=== PATIENT | female | born 1950 | race Caucasian/White ===

== ENCOUNTER 2017-04-14 15:41 | Inpatient (IN) ==
[2017-04-14 16:46] LABS: Basophils % 0.2 %; Eosinophils % 0.2 %; Hematocrit 42.3 % (35.3-44.9); Hemoglobin 14.2 g/dL (11.5-15.4); Immature Granulocytes % 0.6 % (0-4); Lymphocytes # 1.3 K/mcL (0.6-4.6); Lymphocytes % 6.9 %; Mean Corpuscular HGB Conc 33.6 g/dL (31.6-35.5); Mean Corpuscular Hemoglobin 29.5 pg (28.0-33.3); Mean Corpuscular Volume 87.9 fL (83.0-100.0); Mean Platelet Volume 9.9 fL (9.4-12.4); Monocytes # 1.2 K/mcL (0.0-1.3); Monocytes % 6.2 %; Neutrophils # 16.2 K/mcL (1.6-8.9); Platelet Count 404 K/mcL (140-400); Red Blood Count 4.81 M/mcL (3.82-4.97); Red Cell Distribution Width 13.4 % (11.5-14.5); Segmented Neutrophils % 85.9 %
[2017-04-14 16:59] LABS: Albumin 3.8 g/dL (3.5-5.0); Albumin/Globulin Ratio 1.1 (1.1-2.2); Bilirubin,Total 0.5 mg/dL (0.2-1.2); Calcium 10.1 mg/dL (8.6-10.8); Globulin 3.5 g/dL (2.4-3.5); Potassium 4.5 mEq/L (3.5-4.5); Total Protein 7.3 g/dL (6.0-8.3)
--- NOTE | 2017-04-14 17:50 | Emergency Department Note ---
Disposition Clinical Impression: Acute kidney injury Disposition: Admitted As Inpatient Referrals: Martinez Zaman DO [Primary Care Provider] - Forms: ED Satisfaction Letter Lower Extremity Injury HPI - General Chief Complaint: ED Extremity Injury, Lower Stated Complaint: Bilateral ankle pain Time Seen by Provider: 04/14/17 15:54 Source: patient Limitations: no limitations Nursing Notes Reviewed: Yes Vital Signs Reviewed: Yes - History of Present Illness HPI Narrative: Patient complains of bilateral foot pain. Patient had trouble with falls over the past year had a recent fall about blood pain. Patient was seen yesterday for right foot pain but she should develop left foot and thigh pain. Patient denies numbness and tingling denies chest pain. Per EMS report patient was found to have a blood sugar of 35 but patient states she was asystematic - Related Data Home Medications Medication Instructions Recorded Confirmed Calcium Carb/D3/Magnesium/Zinc 1 tab PO HS 04/14/17 04/14/17 [Kyle Mag Zinc + D Tablet] Cyclobenzaprine HCl 10 mg PO HS 04/14/17 04/14/17 [Cyclobenzaprine HCl] Gabapentin [Neurontin] 300 mg PO QPM 04/14/17 04/14/17 Ibuprofen [Advil] 200 mg PO BID PRN 04/14/17 04/14/17 Insulin Glargine,Hum.rec.anlog 48 unit SQ HS 04/14/17 04/14/17 [Lantus Solostar] Krill/Om-3/Dha/Epa/Phospho/Ast 1 cap PO DAILY 04/14/17 04/14/17 [Krill Oil 1,000 mg Softgel] Lisinopril [Zestril] 5 mg PO DAILY 04/14/17 04/14/17 Metformin HCl [Metformin HCl ER] 500 mg PO BID 04/14/17 04/14/17 Quetiapine Fumarate [SEROquel] 300 mg PO HS 04/14/17 04/14/17 SitaGLIPtin [Januvia] 100 mg PO DAILY 04/14/17 04/14/17 Tramadol HCl [Ultram] 50 mg PO QID PRN 04/14/17 04/14/17 amLODIPine [Norvasc] 5 mg PO QPM 04/14/17 04/14/17 buPROPion HCl [Bupropion HCl Sr] 200 mg PO DAILY 04/14/17 04/14/17 rOPINIRole [Requip] 0.25 mg PO HS 04/14/17 04/14/17 Allergies Allergy/AdvReac Type Severity Reaction Status Date / Time Penicillins [PCN] Allergy Rash Verified 04/11/17 16:29 All systems ED: reviewed and negative except as stated. 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 - Social History Smoking Status: Never smoker Smokeless Tobacco Status: No Alcohol use: Reports: none Drug use: Reports: none Physical Exam - General Limitations: no limitations General appearance: alert - Head Head exam: atraumatic, normocephalic, normal inspection - Eye Eye exam: Present: normal appearance, PERRL, EOMI - ENT ENT exam: normal exam, normal oropharynx, mucous membranes moist - Neck Neck exam: Present: normal inspection, full ROM, trachea midline - Chest Chest inspection: Present: normal inspection, symmetric chest wall rise - Respiratory Respiratory exam: Present: normal lung sounds bilaterally - Cardiovascular Cardiovascular exam: Present: regular rate, normal rhythm, normal heart sounds - Abdominal Exam Abdominal exam: Present: soft, Non-Tender. Absent: tenderness, distention, guarding, rebound, rigidity - Extremities Exam Extremities exam: Present: tenderness (Bilateral feet) - Back Exam Back exam: Present: normal inspection, full ROM. Absent: tenderness - Neurological Exam Neurological exam: Present: alert, oriented X3 - Psychiatric Psychiatric exam: Present: normal affect, normal mood - Skin Skin exam: Present: warm, dry, intact, normal color Course Vital Signs Temperature 98.0 F 04/14/17 15:42 Pulse Rate 106 04/14/17 15:42 Respiratory Rate 16 04/14/17 15:42 Blood Pressure 102/66 04/14/17 15:42 O2 Sat by Pulse Oximetry 97 04/14/17 15:42 Temperature 98.0 F 04/14/17 15:42 Pulse Rate 103 04/14/17 18:20 Respiratory Rate 16 04/14/17 18:20 Blood Pressure 96/65 04/14/17 18:20 O2 Sat by Pulse Oximetry 93 04/14/17 18:20 Oxygen Delivery Oxygen Delivery Room Air Extremity Injury, Lower - Differential Diagnosis Likely: fracture, foreign body, dislocation - Lab Data Lab results reviewed: Yes I reviewed the patient's lab results. Result diagrams: 04/14/17 16:28 04/14/17 16:28 Lab Results 04/14/17 04/14/17 04/14/17 Range/Units 16:28 16:28 18:38 WBC 18.8 H (4.3-11.1) K/mcL RBC 4.81 (3.82-4.97) M/mcL Hgb 14.2 (11.5-15.4) g/dL Hct 42.3 (35.3-44.9) % MCV 87.9 (83.0-100.0) fL MCH 29.5 (28.0-33.3) pg MCHC 33.6 (31.6-35.5) g/dL RDW 13.4 (11.5-14.5) % Plt Count 404 H (140-400) K/mcL MPV 9.9 (9.4-12.4) fL Immature Gran % 0.6 (0-4) % Seg Neutrophils % 85.9 % Lymphocytes % 6.9 % Monocytes % 6.2 % Eosinophils % 0.2 % Basophils % 0.2 % Neutrophils # 16.2 H (1.6-8.9) K/mcL Lymphocytes # 1.3 (0.6-4.6) K/mcL Monocytes # 1.2 (0.0-1.3) K/mcL Eosinophils # 0.0 (0.0-0.6) K/mcL Basophils # 0.0 (0.0-0.2) K/mcL Sodium 136 (136-145) mEq/L Potassium 4.5 (3.5-4.5) mEq/L Chloride 98 (98-109) mEq/L Carbon Dioxide 25 (19-29) mEq/L BUN 28 H (7-20) mg/dL Creatinine 1.58 H (0.57-1.11) mg/dL Est GFR ( Amer) 40 L (> 60) Est GFR (Non-Af Amer) 33 L (> 60) BUN/Creatinine Ratio 18 (6-26) Glucose 141 H (70-99) mg/dL Calculated Osmolality 290 (280-300) Calcium 10.1 (8.6-10.8) mg/dL Total Bilirubin 0.5 (0.2-1.2) mg/dL AST 34 (5-34) Units/L ALT 19 (0-55) Units/L Alkaline Phosphatase 59 (38-126) Units/L Creatine Kinase 1055 H (29-168) Units/L Serum Total Protein 7.3 (6.0-8.3) g/dL Albumin 3.8 (3.5-5.0) g/dL Globulin 3.5 (2.4-3.5) g/dL Albumin/Globulin Ratio 1.1 (1.1-2.2) Urine Color Yellow (Yellow) Urine Clarity Cloudy A (Clear) Urine pH 5.0 (5.0-8.0) pH Units Ur Specific [place] 1.016 (1.010-1.025) Urine Protein Negative (Neg-Trace) mg/dL Urine Glucose (UA) Normal (Normal) mg/dL Urine Ketones Trace H (Negative) mg/dL Urine Blood Negative (Negative) Urine Nitrite Negative (Negative) Urine Bilirubin Negative (Negative) Urine Urobilinogen Normal (Normal) mg/dL Ur Leukocyte Esterase Negative (Negative) Urine Microscopic RBC 0-3 (0-3) per hpf Urine Microscopic WBC 0-3 (0-3) per hpf Ur Squamous Epith Cells Many H (None-Few) per lpf Urine Bacteria None Seen (None-Few) per hpf Hyaline Casts Few (None-Few) per lpf - Radiology Data Radiology results reviewed: Yes I reviewed the patient's radiology results. Chest X-Ray 04/14/17 16:11 IMPRESSION: No acute process. D/ / Marcos Mcadams MD / Marcos Mcadams MD Interpreting Provider: Marcos Mcadams MD Foot X-Ray 04/14/17 16:50 IMPRESSION: 1. Acute likely comminuted fracture involving the head and neck of the left 4th metatarsal with minimal displacement. 2. Acute nondisplaced, likely intra-articular fracture involving the lateral base of the left 4th proximal phalanx. 3. Suspected minimally displaced fracture involving the neck of the left 3rd metatarsal. 4. Questionable acute avulsion fracture involving the dorsal neck of the left talus. 5. Bony demineralization. D/ / Dexter Park MD / Dexter Park MD Interpreting Provider: Dexter Park MD Critical Care Time Total Critical Care Time: 30 Attestation: Critical care performed: Time is exclusive of separately billable procedures. Time includes: direct patient care, patient reassessment, coordination of patient care, interpretation of data (laboratory data, radiology data, and respiratory data), review of patient's medical records, medical consultation and documentation of patient care. Procedures included in critical care time: Procedures excluded from critical care time:
[2017-04-14 18:48] LABS: Bilirubin,Urine Negative (Negative); Blood,Urine Negative (Negative); Clarity,Urine Cloudy (Clear); Color,Urine Yellow (Yellow); Glucose,Urine (UA) Normal (Normal); Ketones,Urine Trace mg/dL (Negative); Leukocyte Esterase,Urine Negative (Negative); Nitrite,Urine Negative (Negative); Protein,Urine Negative (Neg-Trace); Specific Gravity,Urine 1.016 (1.010-1.025); Urobilinogen,Urine Normal (Normal)
[2017-04-14 18:50] LABS: Bacteria,Urine None Seen per hpf (None-Few); Hyaline Casts,Urine Few per lpf (None-Few); RBC,Urine 0-3 per hpf (0-3); Squamous Epithelial Cell,Urine Many per lpf (None-Few); WBC,Urine 0-3 per hpf (0-3)
[2017-04-14] MEDS ORDERED: Acetaminophen 325 MG TABLET PO PRN (21:55)
[2017-04-14] MEDS ORDERED: Naloxone 0.4 MG/ML INJ IVP PRN (21:55)
[2017-04-14] MEDS ORDERED: 0.9 % Sodium Chloride 1,000 ML IVC SCH (22:00)
[2017-04-14] MEDS ORDERED: 0.9 % Sodium Chloride 1,000 ML IVC ONE (22:00)
[2017-04-14] MEDS ORDERED: traMADol 50 MG TABLET PO PRN (22:10)
--- NOTE | 2017-04-14 22:15 | Internal Med History&Physical ---
<Malena Whiting M - Last Filed: 04/15/17 00:39> Date of Encounter: 04/14/17 Time of Encounter: 22:13 Assessment and Plan (1) Acute kidney injury Current visit: Yes Status: Acute BUN 28/Cr 1.58, creatinine up from baseline of 0.83. Patient mildly tachycardic and hypotensive with HR 90s-100s and BP 900-100/60s. Patient reports she has not had anything to drink or eat all day. AMBER likely due to dehydration. Hold home metformin, lisinopril, NSAIDs. 1L bolus IV fluids 0.9NS at 100mL/hr Recheck chemistry in the morning. (2) Metatarsal bone fracture Current visit: Yes Status: Acute Multiple bilateral metatarsal fractures. Patient reports frequent falls resulting in these injuries. Fall precautions Elevation, intermittent ice. Will consult orthopedic surgery for determination of surgery vs. Fay boots. check vitamin D Consult to PT/OT Qualifiers: Encounter type: initial encounter Metatarsal bone: unspecified metatarsal Fracture type: closed Fracture alignment: nondisplaced Laterality: unspecified laterality Qualified Code(s): S92.309A - Fracture of unspecified metatarsal bone(s), unspecified foot, initial encounter for closed fracture (3) Talar fracture Current visit: Yes Status: Acute bilateral talar fractures. consult to orthopedic surgery. Qualifiers: Encounter type: initial encounter Fracture type: closed Talus location: unspecified portion of talus Fracture alignment: nondisplaced Laterality: unspecified laterality Qualified Code(s): S92.109A - Unspecified fracture of unspecified talus, initial encounter for closed fracture (4) Frequent falls Current visit: Yes Status: Acute Patient reporting multiple, frequent falls at home going on for the past year. 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 She states because her arms are shaking she can't check her blood sugar so it may be due to low blood sugar. Her blood sugar was reportedly low in the squad. Will check A1c and blood sugars. PT/OT consult (5) Type 2 diabetes mellitus Current visit: Yes Status: Acute Patient having episodes of shakiness and falls. Blood sugar in the squad was reportedly low. Diabetic diet. check blood sugars ACHS Hold metformin and januvia Decrease basal dose of insulin from 48u to 24u HS Sliding scale correction dose ACHS hypoglycemic protocol. Qualifiers: Diabetes mellitus complication status: with hypoglycemia Diabetes mellitus complication detail: without coma Diabetes mellitus shelter insulin use: with chemical applicator use Qualified Code(s): E11.649 - Type 2 diabetes mellitus with hypoglycemia without coma; Z79.4 - powertrain engineer (current) use of insulin (6) Dehydration Current visit: Yes Status: Acute patient reporting poor oral intake. She is mildly tachycardic with HR 90s-100s and mildy hypotensive with BP 90s-100s systolic. BUN and Cr also elevated. 1L bolus plus IV fluids at 100mL/hr Monitor VS and recheck chemistry in the morning. (7) DVT prophylaxis Current visit: Yes Status: Acute sequential compression devices heparin 5000u SQ TID Internal Medicine - H&P: HPI Chief complaint: foot pain Admitted From: Emergency Dept Plans for Post Hospital Care: Home History of present illness: Ms. Mora is a 67 year old female with hypertension, diabetes, history of TIA , presents to the emergency department today with complaints of bilateral foot pain, and multiple falls. Patient reports that she has been falling frequently , fell on Friday and knocked over a metal table which fell on her right foot. She presented to urgent care at that time and was sent home. She reports she fell yesterday and today both her right foot and her left foot hurting, with her right foot having swelling and ecchymosis. Patient reports when she falls she her arms are shaking and she is unable to hold onto anything. She does not notice any leg weakness, lightheadedness. Her description of the events is vague, and not clear exactly how she is falling. She does report that since her arms or shaky she is unable to check her blood sugars and perhaps she has low blood sugar during the episodes where she falls. Her blood sugar was low in the squad according to the ER report. Evaluation in the emergency department included x-rays of her bilateral feet. X-ray of the left foot revealed acute fracture involving head and neck of left fourth metatarsal, acute fracture involving the lateral base of the left fourth phalanx, suspected fracture in the neck of the third metatarsal, questionable acute avulsion fracture of the left talus. X-ray of the right foot showed acute nondisplaced fractures of the third, fourth and possible second metatarsal necks, acute nondisplaced fracture of the lateral base of the fifth proximal phalanx, questionable fracture at the talar head. Lab results revealed elevated white blood cell count of 18.8, likely reactive. Elevated BUN and creatinine of 28 and 1.58, respectively, creatinine is up from baseline of 0.83. Elevated CK of 1055. Lactic acid was within normal limits. Patient was mildly tachycardic with heart rate in the 90s to low 100s, and blood pressure was running low 90s to 100s over 60s. Patient reports she has not been drinking and has not eaten anything all day. On exam, patient alert and oriented, in no acute distress, heart with regular rate and rhythm, lungs clear bilaterally to auscultation. Right foot with swelling and ecchymosis. +2 pulses and good capillary refill. Left foot with +2 pulses and good capillary refill. Past Med Surg Social Fam HX - Past Medical History Medical history: diabetes, GERD, hypertension, TIA Psychiatric history: anxiety - Past Surgical History Surgical History: breast surgery, cholecystectomy, orthopedic, other - Social History Smoking Status: Never smoker Smokeless Tobacco Status: No Alcohol use: none Drug use: none - Family History Mother Living Status: Age at : 42 Cause of : cancer Hx Family Cancer: Yes Father Living Status: Age at : 60 Cause of : Cancer Hx Family Cancer: Yes Internal Medicine - H&P: Meds Calcium Carb/D3/Magnesium/Zinc [Kyle Mag Zinc + D Tablet] 1 tab PO HS 04/14/17 [ History] Cyclobenzaprine HCl [Cyclobenzaprine HCl] 10 mg PO HS 04/14/17 [History] Gabapentin [Neurontin] 300 mg PO QPM 04/14/17 [History] Ibuprofen [Advil] 200 mg PO BID PRN 04/14/17 [History] Insulin Glargine,Hum.rec.anlog [Lantus Solostar] 48 unit SQ HS 04/14/17 [History ] Krill/Om-3/Dha/Epa/Phospho/Ast [Krill Oil 1,000 mg Softgel] 1 cap PO DAILY 04/14 [History] Lisinopril [Zestril] 5 mg PO DAILY 04/14/17 [History] Metformin HCl [Metformin HCl ER] 500 mg PO BID 04/14/17 [History] Quetiapine Fumarate [SEROquel] 300 mg PO HS 04/14/17 [History] SitaGLIPtin [Januvia] 100 mg PO DAILY 04/14/17 [History] Tramadol HCl [Ultram] 50 mg PO QID PRN 04/14/17 [History] amLODIPine [Norvasc] 5 mg PO QPM 04/14/17 [History] buPROPion HCl [Bupropion HCl Sr] 200 mg PO DAILY 04/14/17 [History] rOPINIRole [Requip] 0.25 mg PO HS 04/14/17 [History] Allergies Penicillins [PCN] Allergy (Verified 04/11/17 16:29) Rash All Systems PM: A 10-system review of systems was performed and is negative for pertinent findings except as documented above in the HPI. - Constitutional Constitutional: no chills, no fever(s), no night sweats - EENT Eyes: no change in vision, no discharge, no pain, no photophobia Ears: no ear discharge, no ear pain, no tinnitus Nose, mouth and throat: no dysphagia, no nasal discharge, no neck pain, no sore throat - Cardiovascular Cardiovascular ROS IM: no chest pain, no diaphoresis, no dyspnea, no lightheadedness, no palpitations, no syncope - Respiratory Respiratory: no cough, no dyspnea, no wheezing, no excessive phlegm production - Gastrointestinal Gastrointestinal: no abdominal pain, no diarrhea, no hematemesis, no hematochezia, no melena, no nausea, no vomiting - Genitourinary Genitourinary: no change in urinary stream, no dysuria, no flank pain, no hematuria - Musculoskeletal Musculoskeletal ROS IM: no numbness, no tingling Additional comments: bilateral foot pain - Integumentary Integumentary IM: no rash, no unusual bruising - Neurological Neurological ROS: frequent falls, tremor(s), no confusion, no convulsions, no focal weakness, no numbness, no tingling - Hematologic/Lymphatic Hematologic/Lymphatic: no easy bruising - Constitutional Vitals: Temp Pulse Resp BP Pulse Ox 98.0 F 101 16 103/70 97 04/14/17 15:42 04/14/17 21:00 04/14/17 21:53 04/14/17 21:53 04/14/17 21:00 General appearance: Present: A&O X 3, pleasant, no acute distress - Head Head exam: Present: atraumatic, normocephalic - Eye Eye exam: Present: PERRL, conjuntiva pink, sclera anicteric Pupils: Present: PERRL - Neck Neck exam general surgery: Present: supple, trachea midline. Absent: lymphadenopathy - Respiratory Respiratory exam: Present: CTAB. Absent: accessory muscle use, rales, rhonchi, wheezes - Cardiovascular Cardiovascular exam: Present: RRR, +S1, +S2. Absent: diastolic murmur, gallop, rubs, systolic murmur - GI/Abdominal GI/Abdominal exam: Present: normal bowel sounds, soft, no peritoneal signs. Absent: distended, tenderness - Extremities Exam Extremities exam: Present: joint swelling (right), normal capillary refill, pedal edema (right), tenderness, warm, radial pulses palpable and symetrical. Absent: calf tenderness, cyanotic - Neurological Exam Neurological exam: Present: CN II-XII intact, oriented X3, no focal deficits. Absent: pronater drift, facial droop, speech deficit - Skin Skin exam: Present: dry, intact Internal Med - H&P Results - Labs CBC & Chem 7: 04/14/17 16:28 04/14/17 16:28 Labs: All Lab Results (24 Hours) 04/14/17 04/14/17 04/14/17 Range/Units 16:28 16:28 18:38 WBC 18.8 H (4.3-11.1) K/mcL RBC 4.81 (3.82-4.97) M/mcL Hgb 14.2 (11.5-15.4) g/dL Hct 42.3 (35.3-44.9) % MCV 87.9 (83.0-100.0) fL MCH 29.5 (28.0-33.3) pg MCHC 33.6 (31.6-35.5) g/dL RDW 13.4 (11.5-14.5) % Plt Count 404 H (140-400) K/mcL MPV 9.9 (9.4-12.4) fL Immature Gran % 0.6 (0-4) % Seg Neutrophils % 85.9 % Lymphocytes % 6.9 % Monocytes % 6.2 % Eosinophils % 0.2 % Basophils % 0.2 % Neutrophils # 16.2 H (1.6-8.9) K/mcL Lymphocytes # 1.3 (0.6-4.6) K/mcL Monocytes # 1.2 (0.0-1.3) K/mcL Eosinophils # 0.0 (0.0-0.6) K/mcL Basophils # 0.0 (0.0-0.2) K/mcL Sodium 136 (136-145) mEq/L Potassium 4.5 (3.5-4.5) mEq/L Chloride 98 (98-109) mEq/L Carbon Dioxide 25 (19-29) mEq/L BUN 28 H (7-20) mg/dL Creatinine 1.58 H (0.57-1.11) mg/dL Est GFR ( Amer) 40 L (> 60) Est GFR (Non-Af Amer) 33 L (> 60) BUN/Creatinine Ratio 18 (6-26) Glucose 141 H (70-99) mg/dL Calculated Osmolality 290 (280-300) Lactic Acid (0.5-2.2) mmol/L Calcium 10.1 (8.6-10.8) mg/dL Total Bilirubin 0.5 (0.2-1.2) mg/dL AST 34 (5-34) Units/L ALT 19 (0-55) Units/L Alkaline Phosphatase 59 (38-126) Units/L Creatine Kinase 1055 H (29-168) Units/L Serum Total Protein 7.3 (6.0-8.3) g/dL Albumin 3.8 (3.5-5.0) g/dL Globulin 3.5 (2.4-3.5) g/dL Albumin/Globulin Ratio 1.1 (1.1-2.2) Urine Color Yellow (Yellow) Urine Clarity Cloudy A (Clear) Urine pH 5.0 (5.0-8.0) pH Units Ur Specific [place] 1.016 (1.010-1.025) Urine Protein Negative (Neg-Trace) mg/dL Urine Glucose (UA) Normal (Normal) mg/dL Urine Ketones Trace H (Negative) mg/dL Urine Blood Negative (Negative) Urine Nitrite Negative (Negative) Urine Bilirubin Negative (Negative) Urine Urobilinogen Normal (Normal) mg/dL Ur Leukocyte Esterase Negative (Negative) Urine Microscopic RBC 0-3 (0-3) per hpf Urine Microscopic WBC 0-3 (0-3) per hpf Ur Squamous Epith Cells Many H (None-Few) per lpf Urine Bacteria None Seen (None-Few) per hpf Hyaline Casts Few (None-Few) per lpf 04/14/17 Range/Units 21:39 WBC (4.3-11.1) K/mcL RBC (3.82-4.97) M/mcL Hgb (11.5-15.4) g/dL Hct (35.3-44.9) % MCV (83.0-100.0) fL MCH (28.0-33.3) pg MCHC (31.6-35.5) g/dL RDW (11.5-14.5) % Plt Count (140-400) K/mcL MPV (9.4-12.4) fL Immature Gran % (0-4) % Seg Neutrophils % % Lymphocytes % % Monocytes % % Eosinophils % % Basophils % % Neutrophils # (1.6-8.9) K/mcL Lymphocytes # (0.6-4.6) K/mcL Monocytes # (0.0-1.3) K/mcL Eosinophils # (0.0-0.6) K/mcL Basophils # (0.0-0.2) K/mcL Sodium (136-145) mEq/L Potassium (3.5-4.5) mEq/L Chloride (98-109) mEq/L Carbon Dioxide (19-29) mEq/L BUN (7-20) mg/dL Creatinine (0.57-1.11) mg/dL Est GFR ( Amer) (> 60) Est GFR (Non-Af Amer) (> 60) BUN/Creatinine Ratio (6-26) Glucose (70-99) mg/dL Calculated Osmolality (280-300) Lactic Acid 0.9 (0.5-2.2) mmol/L Calcium (8.6-10.8) mg/dL Total Bilirubin (0.2-1.2) mg/dL AST (5-34) Units/L ALT (0-55) Units/L Alkaline Phosphatase (38-126) Units/L Creatine Kinase (29-168) Units/L Serum Total Protein (6.0-8.3) g/dL Albumin (3.5-5.0) g/dL Globulin (2.4-3.5) g/dL Albumin/Globulin Ratio (1.1-2.2) Urine Color (Yellow) Urine Clarity (Clear) Urine pH (5.0-8.0) pH Units Ur Specific [place] (1.010-1.025) Urine Protein (Neg-Trace) mg/dL Urine Glucose (UA) (Normal) mg/dL Urine Ketones (Negative) mg/dL Urine Blood (Negative) Urine Nitrite (Negative) Urine Bilirubin (Negative) Urine Urobilinogen (Normal) mg/dL Ur Leukocyte Esterase (Negative) Urine Microscopic RBC (0-3) per hpf Urine Microscopic WBC (0-3) per hpf Ur Squamous Epith Cells (None-Few) per lpf Urine Bacteria (None-Few) per hpf Hyaline Casts (None-Few) per lpf - Diagnostic Studies Other Images Additional comments: Chest X-Ray 04/14/17 16:11 IMPRESSION: No acute process. D/ / Marcos Mcadams MD / Marcos Mcadams MD Interpreting Provider: Marcos Mcadams MD Foot X-Ray 04/14/17 16:50 IMPRESSION: 1. Acute likely comminuted fracture involving the head and neck of the left 4th metatarsal with minimal displacement. 2. Acute nondisplaced, likely intra-articular fracture involving the lateral base of the left 4th proximal phalanx. 3. Suspected minimally displaced fracture involving the neck of the left 3rd metatarsal. 4. Questionable acute avulsion fracture involving the dorsal neck of the left talus. 5. Bony demineralization. D/ / Dexter Park MD / Dexter Park MD Interpreting Provider: Dexter Park MD Foot X-Ray 3views right foot 04/14/17 5:42pm Impression: 1. Acute nondisplaced fractures of the 3rd and 4th and possibly the 2nd metatarsal necks. 2. Acute nondisplaced fracture at the lateral base of the 5th proximal phalanx. 3. Question acute nondisplaced fracture at the dorsal aspect of the talar head. <Marcos Giang - Last Filed: 04/15/17 00:48> Date of Encounter: 04/14/17 Internal Medicine - H&P: HPI History of present illness: Ms. Mora is a 67 year old female All Systems PM: A 10-system review of systems was performed and is negative for pertinent findings except as documented above in the HPI. - Constitutional Vitals: Temp Pulse Resp BP Pulse Ox 99.2 F 98 15 99/67 97 04/14/17 22:43 04/14/17 22:43 04/14/17 22:43 04/14/17 22:43 04/14/17 22:43 Internal Med - H&P Results - Labs CBC & Chem 7: 04/14/17 16:28 04/14/17 16:28 - Diagnostic Studies Other Images Status: image reviewed by me (foot xrays) - Attending Attestation I personally interviewed and examined this patient and my medical decision- making was reviewed with the Advanced Practice Nurse. I agree with the documented findings, disposition and treatment plan as described.
[2017-04-14] MEDS ORDERED: Dextrose Gel 15 GM PO PRN ×2 (22:35)
[2017-04-14] MEDS ORDERED: D5% in Water 1,000 ML IVC PRN (22:35)
[2017-04-14] MEDS ORDERED: *HR* Dextrose 50 % in Water (Syg) 50 ML SYRINGE IVP PRN (22:35)
[2017-04-14] MEDS ORDERED: Insulin DETEMIR 100 UNIT/ML X5UNITS SQ SCH ×2 (22:45)
[2017-04-14 23:47] LABS: Hemoglobin A1C 5.9 %
[2017-04-15] MEDS ORDERED: *HR* HYDROmorphone (PF) 1 MG/ML SYRINGE IVP ONE (00:47)
[2017-04-15] MEDS: *HR* HYDROmorphone 2 MG/ML SYRINGE IVP PRN ×2 (04:04→08:29)
[2017-04-15 05:40] LABS: Basophils % 0.2 %; Eosinophils # 0.1 K/mcL (0.0-0.6); Hematocrit 37.6 % (35.3-44.9); Immature Granulocytes % 0.4 % (0-4); Lymphocytes # 1.9 K/mcL (0.6-4.6); Lymphocytes % 14.6 %; Mean Corpuscular Volume 88.1 fL (83.0-100.0); Mean Platelet Volume 9.6 fL (9.4-12.4); Monocytes # 1.3 K/mcL (0.0-1.3); Monocytes % 10.3 %; Neutrophils # 9.5 K/mcL (1.6-8.9); Platelet Count 360 K/mcL (140-400); Red Blood Count 4.27 M/mcL (3.82-4.97); Red Cell Distribution Width 13.5 % (11.5-14.5); Segmented Neutrophils % 73.5 %
[2017-04-15 05:41] LABS: Hemoglobin 12.4 g/dL (11.5-15.4)
[2017-04-15] MEDS: *HR* Heparin 5,000 UNIT/ML VIAL SQ SCH ×3 (05:46→20:26)
[2017-04-15 05:54] LABS: BUN/Creatinine Ratio 23 (6-26); Blood Urea Nitrogen 22 mg/dL (7-20); Carbon Dioxide 24 mEq/L (19-29); Chloride 108 mEq/L (98-109); Osmolality,Calculated 288 (280-300); Potassium 3.8 mEq/L (3.5-4.5); Sodium 139 mEq/L (136-145); eGFR For African Americans > 60 (> 60); eGFR For Non-African Americans 59 (> 60)
[2017-04-15 05:55] LABS: Calcium 8.3 mg/dL (8.6-10.8)
[2017-04-15 05:58] LABS: Glucose 40 mg/dL (70-99)
[2017-04-15] MEDS ORDERED: Insulin LISPRO 300 UNITS/3 ML VIAL SQ SCH ×2 (07:30→21:00)
[2017-04-15] MEDS: BuPROPion SR (12 HR) 100 MG TABLET PO SCH (08:03)
[2017-04-15] MEDS ORDERED: D5% in 0.45% NACL 1,000 ML IVC SCH (12:00)
--- NOTE | 2017-04-15 13:08 | Podiatry Consult Note ---
Date of Encounter: 04/15/17 Time of Encounter: 12:40 Assessment and Plan (1) Metatarsal bone fracture Current visit: Yes Status: Acute Xray of Left foot remarkable for an acute likely comminuted fracture involving the head and neck of the left 4th metatarsal with minimal displacement. Acute nondisplaced, likely intra- articular fracture involving the lateral base of the left 4th proximal phalanx, Suspected minimally displaced fracture involving the neck of the left 3rd metatarsal, Questionable acute avulsion fracture involving the dorsal neck of the left talus and bony demineralization. Xrays of the right foot showed acute nondisplaced fractures of the thrid, fourth and possible second metatarsal necks , acute nondisplaced fracture of the lateral base of the 5th proximal phalanx, questionable fracture at the talar head. Xray of right ankle obtained today and negative for any fractures. No surgical intervention required at this time. Recommend surgical post op shoes to both feet with jt wraps. Protective weight bearing with walker. Apply ice pack to both feet for 20 minutes over a dry wash cloth every two hours while awake. F/u with Dr. Mccullough in Podiatry in two weeks or sooner if increased pain, redness, increased swelling, streaking or any other questions or concerns. Qualifiers: Encounter type: initial encounter Metatarsal bone: unspecified metatarsal Fracture type: closed Fracture alignment: nondisplaced Laterality: unspecified laterality Qualified Code(s): S92.309A - Fracture of unspecified metatarsal bone(s), unspecified foot, initial encounter for closed fracture History of Present Illness HPI: Ms. Mora is a 67 year old female admitted to [facility] for foot pain and frequent falls. Patient states over the past few months she has had increased falls. She states she thinks her blood sugars have been low and she has not been aware because she has not felt any different. She states five days ago she fell over her metal table and injured her right foot, she was evaluated in the Urgent Care and sent home. She fell a second time three days ago, but she is not sure how she fell. She denies any LOC but was noted to have a low blood sugar in the Squad. The patient has bilateral foot pain that is rated at an 8 out of 10. She had xrays completed of both feet. Left foot remarkable for an acute likely comminuted fracture involving the head and neck of the left 4th metatarsal with minimal displacement. Acute nondisplaced, likely intra- articular fracture involving the lateral base of the left 4th proximal phalanx, Suspected minimally displaced fracture involving the neck of the left 3rd metatarsal, Questionable acute avulsion fracture involving the dorsal neck of the left talus and bony demineralization. Xrays of the right foot showed acute nondisplaced fractures of the thrid, fourth and possible second metatarsal necks , acute nondisplaced fracture of the lateral base of the 5th proximal phalanx, questionable fracture at the talar head. Patient has a medical history significant for DM, GERD, HTN, TIA, and anxiety. Patient states she did fracture her left foot approximately six years ago. 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 No c/o fever, chills, numbness, or tingling. Past Med Surg Social Fam HX - Past Medical History Medical history: diabetes, GERD, hypertension, TIA Psychiatric history: anxiety - Past Surgical History Surgical History: breast surgery, cholecystectomy, orthopedic, other - Social History Smoking Status: Never smoker Smokeless Tobacco Status: No Alcohol use: none Drug use: none - Family History Mother Living Status: Age at : 42 Cause of : cancer Hx Family Cardiac Disorders: Yes (heart attack) Hx Family Cancer: Yes Father Family Member Ethnicity: Non- Living Status: Age at : 60 Cause of : Cancer Hx Family Cardiac Disorders: No Hx Family Cancer: Yes Hx Family Endocrine Disorder: Yes (diabetes) Medications and Allergies Calcium Carb/D3/Magnesium/Zinc [Kyle Mag Zinc + D Tablet] 1 tab PO HS 04/14/17 [ History] Cyclobenzaprine HCl [Cyclobenzaprine HCl] 10 mg PO HS 04/14/17 [History] Gabapentin [Neurontin] 300 mg PO QPM 04/14/17 [History] Ibuprofen [Advil] 200 mg PO BID PRN 04/14/17 [History] Insulin Glargine,Hum.rec.anlog [Lantus Solostar] 48 unit SQ HS 04/14/17 [History ] Krill/Om-3/Dha/Epa/Phospho/Ast [Krill Oil 1,000 mg Softgel] 1 cap PO DAILY 04/14 [History] Lisinopril [Zestril] 5 mg PO DAILY 04/14/17 [History] Metformin HCl [Metformin HCl ER] 500 mg PO BID 04/14/17 [History] Quetiapine Fumarate [SEROquel] 300 mg PO HS 04/14/17 [History] SitaGLIPtin [Januvia] 100 mg PO DAILY 04/14/17 [History] Tramadol HCl [Ultram] 50 mg PO QID PRN 04/14/17 [History] amLODIPine [Norvasc] 5 mg PO QPM 04/14/17 [History] buPROPion HCl [Bupropion HCl Sr] 200 mg PO DAILY 04/14/17 [History] rOPINIRole [Requip] 0.25 mg PO HS 04/14/17 [History] Allergies Penicillins [PCN] Allergy (Verified 04/11/17 16:29) Rash All Systems Reviewed: A 10-system review of systems was performed and is negative for pertinent findings except as documented above in the HPI. Physical Exam - Constitutional Vitals: Temp Pulse Resp BP Pulse Ox 97.4 F L 86 16 102/66 94 04/15/17 10:54 04/15/17 10:54 04/15/17 10:54 04/15/17 10:54 04/15/17 10:54 General appearance: cooperative - Head Head exam: Present: atraumatic, normal inspection - Extremities Exam Extremities exam: Present: normal capillary refill, pedal edema Additional comments: No calf pain with manual compression. - Expanded Lower Extremities Exam Ankle exam: Present: ecchymosis (right lateral ankle), swelling, tenderness ( right lateral ankle) Foot/Toe exam: Present: ecchymosis (Right foot: ecchymosis to the lateral aspect of the ankle, lateral foot, plantar aspect of foot, base of toes #1 through #5 and plantar aspect of right great toe with swelling. Left foot: ecchymosis to base of 5th toe lateral aspect of left foot and plantar aspect of left foot with swelling. No erythema.), swelling, tenderness (Tenderness upon palpation to the entire right and left foot and right lateral ankle. ) - Neurological Exam Neurological exam: Present: oriented X3 - Vascular Capillary Refill: less than 3 seconds (pedal pulses 2+/4.) Results - Labs Result Diagrams: 04/15/17 05:30 04/15/17 05:30 Labs: Abnormal lab results WBC 13.0 K/mcL (4.3-11.1) H 04/15/17 05:30 Neutrophils # 9.5 K/mcL (1.6-8.9) H 04/15/17 05:30 BUN 22 mg/dL (7-20) H 04/15/17 05:30 Est GFR (Non-Af Amer) 59 (> 60) L 04/15/17 05:30 Glucose 40 mg/dL (70-99) L* 04/15/17 05:30 POC Glucose 94 (58-89) H 04/15/17 12:15 Hemoglobin A1c 5.9 % (-5.6) H 04/14/17 16:28 Calcium 8.3 mg/dL (8.6-10.8) L D 04/15/17 05:30 Creatine Kinase 1055 Units/L (29-168) H 04/14/17 16:28 Urine Clarity Cloudy (Clear) A 04/14/17 18:38 Urine Ketones Trace mg/dL (Negative) H 04/14/17 18:38 Ur Squamous Epith Cells Many per lpf (None-Few) H 04/14/17 18:38 H & H 04/15/17 Range/Units 05:30 Hgb 12.4 D (11.5-15.4) g/dL Hct 37.6 (35.3-44.9) % All other labs normal. Consult Discharge Plan - Plan Referrals: Martinez Zaman DO [Primary Care Provider] -
[2017-04-15] MEDS: *HR* Morphine 2 MG/ML SYRINGE IVP PRN ×2 (13:38→20:26)
[2017-04-15] MEDS: traMADol 50 MG TABLET PO PRN ×2 (14:35→22:34)
[2017-04-15] MEDS: Gabapentin 300 MG CAPSULE PO SCH (18:11)
--- NOTE | 2017-04-15 19:02 | Internal Med Progress Note ---
Date of Encounter: 04/15/17 Time of Encounter: 10:00 - Assessment and plan (1) Hypoglycemia Current Visit: Yes Status: Acute Assessment and plan: Patient has diabetes on insulin. She was found persistent hypoglycemia. We will hold insulin. On D5 1/2NS infusion. We will closely follow glucose level. Will consult quality tech to get better self-management of diabetes. (2) Frequent falls Current Visit: Yes Status: Acute Assessment and plan: Possibly due to hypoglycemia. Will correct low sugar level, PT OT evaluation. (3) Talar fracture Current Visit: Yes Status: Acute Assessment and plan: Podiatry consult appreciated. Continue conservative treatment. Qualifiers: Encounter type: initial encounter Fracture type: closed Talus location: unspecified portion of talus Fracture alignment: nondisplaced Laterality: unspecified laterality Qualified Code(s): S92.109A - Unspecified fracture of unspecified talus, initial encounter for closed fracture (4) Type 2 diabetes mellitus Current Visit: Yes Status: Acute Assessment and plan: Patient was on insulin but developed hypoglycemia. We will hold the insulin now , closely follow up sugar level. 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 Qualifiers: Encounter type: initial encounter Metatarsal bone: unspecified metatarsal Fracture type: closed Fracture alignment: nondisplaced Laterality: unspecified laterality Qualified Code(s): S92.309A - Fracture of unspecified metatarsal bone(s), unspecified foot, initial encounter for closed fracture (7) Acute kidney injury Current Visit: Yes Status: Acute Assessment and plan: Improved after hydration (8) DVT prophylaxis Current Visit: Yes Status: Acute Assessment and plan: Heparin subcutaneously - Time Spent With Patient 25 - 35 minutes - Subjective Interval history: Patient is a 67-year-old female admitted for multiple falls. Her past medical history is significant for diabetes, hypertension, and TIA. Patient was seen and examined, complained both feet pain. Podiatry consult appreciated, recommended conservative treatment. Recommendation will be followed. Patient has persistent hypoglycemia, D5 with half-normal saline infusion started. Glucose level is 190s now. - Constitutional Vitals: Temp Pulse Resp BP Pulse Ox 98.4 F 94 18 123/73 97 04/15/17 16:49 04/15/17 16:49 04/15/17 16:49 04/15/17 16:49 04/15/17 16:49 General appearance: Present: A&O X 3, pleasant, no acute distress - Head Head exam: Present: atraumatic, normocephalic - Eye Eye exam: Present: PERRL, conjuntiva pink, sclera anicteric Pupils: Present: PERRL - Neck Neck exam general surgery: Present: supple, trachea midline. Absent: lymphadenopathy - Respiratory Respiratory exam: Present: CTAB. Absent: accessory muscle use, rales, rhonchi, wheezes - Cardiovascular Cardiovascular exam: Present: RRR, +S1, +S2. Absent: diastolic murmur, gallop, rubs, systolic murmur - GI/Abdominal GI/Abdominal exam: Present: normal bowel sounds, soft, no peritoneal signs. Absent: distended, tenderness - Extremities Exam Extremities exam: Present: warm, radial pulses palpable and symetrical. Absent : calf tenderness, cyanotic, pedal edema Additional comments: Tenderness on both feet - Neurological Exam Neurological exam: Present: CN II-XII intact, oriented X3, no focal deficits. Absent: pronater drift, facial droop, speech deficit - Skin Skin exam: Present: dry, intact Internal Medicine: Result - Labs CBC & Chem 7: 04/15/17 05:30 04/15/17 05:30 - VTE Documentation of Mechanical Device: Intermittent pneumatic compression device Consult Discharge Plan - Plan Referrals: Martinez Zaman DO [Primary Care Provider] -
[2017-04-15] MEDS: rOPINIRole 0.25 MG TABLET PO SCH (20:26)
[2017-04-15] MEDS: D5% in 0.45% NACL 1,000 ML IVC SCH (20:26)
[2017-04-16] MEDS: D5% in 0.45% NACL 1,000 ML IVC SCH (04:18)
[2017-04-16] MEDS: *HR* Morphine 2 MG/ML SYRINGE IVP PRN ×3 (04:18→18:31)
[2017-04-16] MEDS: *HR* Heparin 5,000 UNIT/ML VIAL SQ SCH ×3 (05:15→20:33)
[2017-04-16] MEDS ORDERED: Nitroglycerin 0.4 MG TAB.SUBL SL PRN (05:18)
[2017-04-16 05:28] LABS: Basophils % 0.2 %; Eosinophils # 0.1 K/mcL (0.0-0.6); Eosinophils % 0.8 %; Hematocrit 37.8 % (35.3-44.9); Hemoglobin 12.5 g/dL (11.5-15.4); Immature Granulocytes % 0.4 % (0-4); Lymphocytes # 1.4 K/mcL (0.6-4.6); Mean Corpuscular HGB Conc 33.1 g/dL (31.6-35.5); Mean Corpuscular Hemoglobin 29.4 pg (28.0-33.3); Mean Corpuscular Volume 88.9 fL (83.0-100.0); Mean Platelet Volume 10.3 fL (9.4-12.4); Monocytes # 1.1 K/mcL (0.0-1.3); Neutrophils # 9.9 K/mcL (1.6-8.9); Platelet Count 332 K/mcL (140-400); Red Blood Count 4.25 M/mcL (3.82-4.97); Red Cell Distribution Width 13.3 % (11.5-14.5); Segmented Neutrophils % 78.6 %
[2017-04-16] MEDS ORDERED: *HR* Morphine 2 MG/ML SYRINGE IVP ONE (05:36)
--- NOTE | 2017-04-16 05:39 | Event Note ---
Date of Encounter: 04/16/17 Time of Encounter: 05:39 On-call hospitalist note: Chest pain: Patient reported chest pain in the left infraclavicular area. 5/10 in severity, sharp, non radiating, worse on deep breath. O/E: Lungs clear to auscultation. Cardiac regular rate and rhythm. No significant chest wall tenderness. EKG personally reviewed by me shows sinus rhythm and RBBB. Sublingual nitroglycerin did not help the chest pain. She was given intravenous morphine with relief. I have requested for troponins and d-dimer. Morning team to follow.
[2017-04-16 05:47] LABS: BUN/Creatinine Ratio 13 (6-26); Calcium 8.9 mg/dL (8.6-10.8); Carbon Dioxide 28 mEq/L (19-29); Chloride 102 mEq/L (98-109); Glucose 202 mg/dL (70-99); Osmolality,Calculated 289 (280-300); Potassium 3.9 mEq/L (3.5-4.5); Sodium 137 mEq/L (136-145); eGFR For African Americans > 60 (> 60); eGFR For Non-African Americans > 60 (> 60)
[2017-04-16 05:48] LABS: Blood Urea Nitrogen 11 mg/dL (7-20)
[2017-04-16] MEDS: BuPROPion SR (12 HR) 100 MG TABLET PO SCH (08:43)
--- NOTE | 2017-04-16 13:02 | Podiatry Progress Note ---
Date of Encounter: 04/17/17 Time of Encounter: 12:15 - Assessment and Plan (1) Metatarsal bone fracture Current Visit: Yes Status: Acute Xray of Left foot remarkable for an acute likely comminuted fracture involving the head and neck of the left 4th metatarsal with minimal displacement. Acute nondisplaced, likely intra- articular fracture involving the lateral base of the left 4th proximal phalanx, Suspected minimally displaced fracture involving the neck of the left 3rd metatarsal, Questionable acute avulsion fracture involving the dorsal neck of the left talus and bony demineralization. Xrays of the right foot showed acute nondisplaced fractures of the thrid, fourth and possible second metatarsal necks , acute nondisplaced fracture of the lateral base of the 5th proximal phalanx, questionable fracture at the talar head. Xray of right ankle negative for any fractures. No surgical intervention required at this time. Recommend surgical post op shoes to both feet with jt wraps. Protective weight bearing with walker. Awaiting PT to provide walker training. Apply ice pack to both feet for 20 minutes over a dry wash cloth every two hours while awake. F/u with Dr. Mccullough in Podiatry in two weeks or sooner if increased pain, redness, increased swelling, streaking or any other questions or concerns. Qualifiers: Encounter type: initial encounter Metatarsal bone: unspecified metatarsal Fracture type: closed Fracture alignment: nondisplaced Laterality: unspecified laterality Qualified Code(s): S92.309A - Fracture of unspecified metatarsal bone(s), unspecified foot, initial encounter for closed fracture Subjective Interval history: Patient lying in bed. Patient just returned from [place]. She states she was suppose to have and US of her thyroid but they did not do it and sent her back. Patient made aware that right ankle xray was with in normal limits, but she has fractures to the metatarsals of both feet. Discussed use of jt wrap, ice, rest, walker, and post op shoe. Patient had CP this morning with a positive d- dimer and sent for CT of chest. Objective - Vital Signs Vital Signs: Vital Signs Temp Pulse Resp BP Pulse Ox 04/16/17 10:25 98.2 F 106 17 112/60 95 04/16/17 07:11 95 04/16/17 06:31 99.2 F 108 18 123/70 95 04/16/17 04:04 98.8 F 114 14 111/70 91 04/15/17 23:52 98.6 F 110 14 123/62 91 04/15/17 19:46 98.5 F 95 13 131/72 96 04/15/17 16:49 98.4 F 94 18 123/73 97 Intake and Output 04/15/17 04/16/17 04/16/17 23:59 07:59 15:59 Intake Total 270 / 270 1494 / 1494 120 / 120 Output Total 1600 / 1600 975 / 975 550 / 550 Balance -1330 / -1330 519 / 519 -430 / -430 Intake: IV Fluids 270 / 270 1494 / 1494 D5% And 0.45% Nacl 1000 270 / 270 1000 / 1000 Ml Bag 1,000 ML @ 50 mls/ hr IVC .Q20H BENI Rx#: [id number] Oral 0 / 0 0 / 0 120 / 120 Output: Urine 425 / 425 Catheter 1175 / 1175 975 / 975 550 / 550 Other: Stool Size Large Stool Consistency soft Stool Color Brown # Bowel Movements 1 Blood Glucose* 199 220 - Exam Exam: - Extremities Exam Extremities exam: Present: normal capillary refill, pedal edema Additional comments: No calf pain with manual compression. - Expanded Lower Extremities Exam Ankle exam: Present: ecchymosis (right lateral ankle), swelling, tenderness ( right lateral ankle) Foot/Toe exam: Present: ecchymosis (Right foot: ecchymosis to the lateral aspect of the ankle, lateral foot, plantar aspect of foot, base of toes #1 through #5 and plantar aspect of right great toe with swelling. Left foot: ecchymosis to base of 5th toe lateral aspect of left foot and plantar aspect of left foot with swelling. No erythema.), swelling, tenderness (Tenderness upon palpation to the entire right and left foot and right lateral ankle. ) - Neurological Exam Neurological exam: Present: oriented X3 - Vascular Capillary Refill: less than 3 seconds (pedal pulses 2+/4.) - Lab Result Diagrams: 04/17/17 05:18 04/17/17 05:18 Labs: Abnormal lab results WBC 12.6 K/mcL (4.3-11.1) H 04/16/17 04:03 Neutrophils # 9.9 K/mcL (1.6-8.9) H 04/16/17 04:03 D-Dimer 2098 ng/mLFEU (0-500) H 04/16/17 06:14 Glucose 202 mg/dL (70-99) H 04/16/17 04:03 POC Glucose 220 (58-89) H 04/16/17 11:57 Hemoglobin A1c 5.9 % (-5.6) H 04/14/17 16:28 Creatine Kinase 1055 Units/L (29-168) H 04/14/17 16:28 Troponin I 0.09 ng/mL (0-0.03) H* 04/16/17 06:14 Urine Clarity Cloudy (Clear) A 04/14/17 18:38 Urine Ketones Trace mg/dL (Negative) H 04/14/17 18:38 Ur Squamous Epith Cells Many per lpf (None-Few) H 04/14/17 18:38 - VTE Documentation of Mechanical Device: Intermittent pneumatic compression device Consult Discharge Plan - Plan Referrals: Martinez Zaman DO [Primary Care Provider] -
[2017-04-16] MEDS: traMADol 50 MG TABLET PO PRN ×2 (13:54→20:33)
--- NOTE | 2017-04-16 16:41 | Electrocardiograph Report ---
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
[2017-04-16] MEDS: amLODIPine 5 MG TABLET PO SCH (18:31)
[2017-04-16] MEDS: Gabapentin 300 MG CAPSULE PO SCH (18:31)
--- NOTE | 2017-04-16 18:37 | Internal Med Progress Note ---
Date of Encounter: 04/16/17 Time of Encounter: 10:00 - Assessment and plan (1) Hypoglycemia Current Visit: Yes Status: Acute Assessment and plan: Patient has diabetes on insulin. She was found persistent hypoglycemia. We will hold insulin. Hypoglycemia improved now, will continue close monitoring glucose and hold insulin. Will consult vice president of news to get better self-management of diabetes. (2) Frequent falls Current Visit: Yes Status: Acute Assessment and plan: Possibly due to hypoglycemia. Will correct low sugar level, PT OT evaluation. (3) Talar fracture Current Visit: Yes Status: Acute Assessment and plan: Podiatry consult appreciated. Continue conservative treatment. Qualifiers: Encounter type: initial encounter Fracture type: closed Talus location: unspecified portion of talus Fracture alignment: nondisplaced Laterality: unspecified laterality Qualified Code(s): S92.109A - Unspecified fracture of unspecified talus, initial encounter for closed fracture (4) Type 2 diabetes mellitus Current Visit: Yes Status: Acute Assessment and plan: Patient was on insulin but developed hypoglycemia. We will hold the insulin now , closely follow up sugar level. Qualifiers: Diabetes mellitus complication status: with hypoglycemia Diabetes mellitus complication detail: without coma Diabetes mellitus executive sales manager insulin use: with executive sales manager use Qualified Code(s): E11.649 - Type 2 diabetes mellitus with hypoglycemia without coma; Z79.4 - installation drafter (current) use of insulin (5) Dehydration Current Visit: Yes Status: Acute Assessment and plan: Improved after hydration (6) Metatarsal bone fracture Current Visit: Yes Status: Acute Assessment and plan: Per podiatry consult, conservative treatment recommended. Qualifiers: Encounter type: initial encounter Metatarsal bone: unspecified metatarsal Fracture type: closed Fracture alignment: nondisplaced Laterality: unspecified laterality Qualified Code(s): S92.309A - Fracture of unspecified metatarsal bone(s), unspecified foot, initial encounter for closed fracture (7) Acute kidney injury Current Visit: Yes Status: Acute Assessment and plan: Improved after hydration (8) DVT prophylaxis Current Visit: Yes Status: Acute Assessment and plan: Heparin subcutaneously (9) Elevated d-dimer Current Visit: Yes Status: Acute Assessment and plan: Overnight patient developed chest pain, patient is pain-free right now. However d-dimer is elevated, CTA has been ordered, no PE. Will also follow Doppler bilateral legs to rule out DVT. - Time Spent With Patient 25 - 35 minutes - Subjective Interval history: Patient is a 67-year-old female admitted for multiple falls. Her past medical history is significant for diabetes, hypertension, and TIA. Patient was seen and examined, patient is more awake alert. complained both feet pain. Podiatry recommendation will be followed. Hypoglycemia has improved. Vitals are stable. Will continue current treatment, placement plan with the social media marketing analyst and physical therapist. - Constitutional Vitals: Temp Pulse Resp BP Pulse Ox 98.5 F 101 18 118/74 95 04/16/17 14:26 04/16/17 14:26 04/16/17 14:26 04/16/17 14:26 04/16/17 14:26 General appearance: Present: A&O X 3, pleasant, no acute distress - Head Head exam: Present: atraumatic, normocephalic - Eye Eye exam: Present: PERRL, conjuntiva pink, sclera anicteric Pupils: Present: PERRL - Neck Neck exam general surgery: Present: supple, trachea midline. Absent: lymphadenopathy - Respiratory Respiratory exam: Present: CTAB. Absent: accessory muscle use, rales, rhonchi, wheezes - Cardiovascular Cardiovascular exam: Present: RRR, +S1, +S2. Absent: diastolic murmur, gallop, rubs, systolic murmur - GI/Abdominal GI/Abdominal exam: Present: normal bowel sounds, soft, no peritoneal signs. Absent: distended, tenderness - Extremities Exam Extremities exam: Present: tenderness (On both feet), warm, radial pulses palpable and symetrical. Absent: calf tenderness, cyanotic, pedal edema - Neurological Exam Neurological exam: Present: CN II-XII intact, oriented X3, no focal deficits. Absent: pronater drift, facial droop, speech deficit - Skin Skin exam: Present: dry, intact Internal Medicine: Result - Labs CBC & Chem 7: 04/16/17 04:03 04/16/17 04:03 Labs: Short CBC 04/16/17 Range/Units 04:03 WBC 12.6 H (4.3-11.1) K/mcL Hgb 12.5 (11.5-15.4) g/dL Hct 37.8 (35.3-44.9) % Plt Count 332 (140-400) K/mcL Neutrophils # 9.9 H (1.6-8.9) K/mcL BMP 04/16/17 04:03 Sodium 137 Potassium 3.9 Chloride 102 Carbon Dioxide 28 BUN 11 D Creatinine 0.84 Glucose 202 H Calcium 8.9 Cardiac Enzymes 04/16/17 04/16/17 Range/Units 06:14 12:54 Troponin I 0.09 H* 0.06 H* (0-0.03) ng/mL - ABG Interpretation ABG results: PT/INR, D-dimer D-Dimer 2098 ng/mLFEU (0-500) H 04/16/17 06:14 - Impressions Impressions Chest CTA 04/16/17 07:28 IMPRESSION: No evidence of pulmonary embolism or acute pulmonary abnormality. Bibasilar atelectasis. Heterogeneous enlarged thyroid gland with a 3.0 x 1.2 cm nodule in the right isthmus and lobe. Further evaluation with ultrasound is recommended. D/ / 04/16/2017 08:40:33 Olesya Scott MD / Hattie Brown Interpreting Provider: Olesya Scott MD Thyroid Ultrasound 04/16/17 11:00 IMPRESSION: Enlargement of the right thyroid lobe and isthmus due to a 3.2 cm x 3.1 cm x 2.1 cm TI-RADS category TR [address], meeting criteria for fine needle aspiration. Additional nodules noted bilaterally also meet criteria for TI-RADS category 4 but do not merit follow-up based upon size. RECOMMENDATIONS: Nodule 1: ACR TI-RADS 4 Recommend: Ultrasound-guided fine needle aspiration Nodule 2: ACR TI-RADS 4 Recommend: No further follow-up ACR TI-RADS recommendations TR4 (4-6 points): FNA if >= 1.5 cm, follow-up if 1-1.4 cm in 1, 2, 3, and 5 years ACR TI-RADS recommends that no more than two nodules with the highest ACR TI-RADS total point should be biopsied and no more than four nodules should be followed. D/ / Dexter Park MD / Dexter Park MD Interpreting Provider: Dexter Park MD - VTE Documentation of Mechanical Device: Intermittent pneumatic compression device Consult Discharge Plan - Plan Referrals: Martinez Zaman DO [Primary Care Provider] -
[2017-04-16] MEDS: rOPINIRole 0.25 MG TABLET PO SCH (20:33)
[2017-04-17] MEDS: *HR* Heparin 5,000 UNIT/ML VIAL SQ SCH ×3 (05:27→21:15)
[2017-04-17 05:42] LABS: Basophils % 0.3 %; Eosinophils # 0.1 K/mcL (0.0-0.6); Eosinophils % 0.8 %; Hematocrit 34.6 % (35.3-44.9); Hemoglobin 11.6 g/dL (11.5-15.4); Immature Granulocytes % 0.4 % (0-4); Lymphocytes # 1.7 K/mcL (0.6-4.6); Mean Corpuscular HGB Conc 33.5 g/dL (31.6-35.5); Mean Corpuscular Hemoglobin 29.1 pg (28.0-33.3); Mean Corpuscular Volume 86.9 fL (83.0-100.0); Mean Platelet Volume 9.8 fL (9.4-12.4); Monocytes # 1.2 K/mcL (0.0-1.3); Monocytes % 10.7 %; Neutrophils # 7.8 K/mcL (1.6-8.9); Platelet Count 308 K/mcL (140-400); Red Blood Count 3.98 M/mcL (3.82-4.97); Red Cell Distribution Width 13.2 % (11.5-14.5); Segmented Neutrophils % 71.8 %
[2017-04-17 05:55] LABS: BUN/Creatinine Ratio 11 (6-26); Blood Urea Nitrogen 9 mg/dL (7-20); Calcium 8.7 mg/dL (8.6-10.8); Carbon Dioxide 23 mEq/L (19-29); Chloride 104 mEq/L (98-109); Glucose 215 mg/dL (70-99); Osmolality,Calculated 289 (280-300); Potassium 3.9 mEq/L (3.5-4.5); Sodium 137 mEq/L (136-145); eGFR For African Americans > 60 (> 60); eGFR For Non-African Americans > 60 (> 60)
[2017-04-17] MEDS: BuPROPion SR (12 HR) 100 MG TABLET PO SCH (07:58)
[2017-04-17 10:30] LABS: Thyroid Stimulating Hormone 1.378 mcIU/mL (0.350-4.840); Triiodothyronine (T3) Free 2.24 pg/mL (1.71-3.71); Triiodothyronine (T3) Total 0.66 ng/mL (0.58-1.59)
--- NOTE | 2017-04-17 14:00 | Venous Imaging Report ---
LE Venous Duplex Patient Name:Rhea Mora Order Number:[id number] Procedure Date:04/16/2017 Date:1950Age:67 yrs Gender:Female Location:[facility] Room #: 3A47 Farm Assistant:Jeannette Lynne Referring MD:Sanford Ge MD button tacker:Martinez Zaman DO Reading MD:Ad Ding MD Primary Indications:D-dimer positive Secondary Indications: Risk Factors Yes/No Recent falls Impressions: Bilateral lower extremity: normal superficial and deep exam. Findings Prior Study: No prior study available for comparison. Lower Extremity Venous Duplex Side Vein Compress Spontaneous Flow Augment Diameter (cm) Depth (cm) Right Distal Iliac Normal Yes Phasic Yes Right Common Femoral Normal Yes Phasic Yes Right Superficial Femoral Normal Yes Phasic Yes Right Popliteal Normal Yes Phasic Yes Right Posterior Tibial Normal Yes Phasic Yes Right Peroneal Normal Yes Phasic Yes Right Saphenofemoral Junction Normal Yes Phasic Yes Right Great Saphenous Normal Yes Phasic Yes Right Lesser Saphenous Normal Yes Phasic Yes Left Distal Iliac Normal Yes Phasic Yes Left Common Femoral Normal Yes Phasic Yes Left Superficial Femoral Normal Yes Phasic Yes Left Popliteal Normal Yes Phasic Yes Left Posterior Tibial Normal Yes Phasic Yes Left Peroneal Normal Yes Phasic Yes Left Saphenofemoral [place]unction Normal Yes Phasic Yes Left Great Saphenous Normal Yes Phasic Yes Left Lesser Saphenous Normal Yes Phasic Yes Updated by Ad Ding MD on 04/17/2017 1:54:47 PM electronically signed on 04/17/2017 1:55:40 PM with status of Final
[2017-04-17] MEDS: *HR* Morphine 2 MG/ML SYRINGE IVP PRN (14:45)
[2017-04-17] MEDS: Gabapentin 300 MG CAPSULE PO SCH (17:49)
[2017-04-17] MEDS: *HR* Metformin 500 MG TABLET PO SCH (17:49)
[2017-04-17] MEDS: amLODIPine 5 MG TABLET PO SCH (17:50)
[2017-04-17] MEDS: traMADol 50 MG TABLET PO PRN (17:55)
--- NOTE | 2017-04-17 17:57 | Internal Med Progress Note ---
Date of Encounter: 04/17/17 Time of Encounter: 10:00 - Assessment and plan (1) Hypoglycemia Current Visit: Yes Status: Acute Assessment and plan: Patient has diabetes on insulin. She was found persistent hypoglycemia. We will hold insulin. Hypoglycemia improved now, will continue close monitoring glucose and hold insulin. Will place pt on metformin 500 mg po bid only for DM. Will consult informatics educator to get better self-management of diabetes. (2) Frequent falls Current Visit: Yes Status: Acute Assessment and plan: Possibly due to hypoglycemia. Will correct low sugar level, PT OT evaluation. (3) Talar fracture Current Visit: Yes Status: Acute Assessment and plan: Podiatry consult appreciated. Continue conservative treatment. Qualifiers: Encounter type: initial encounter Fracture type: closed Talus location: unspecified portion of talus Fracture alignment: nondisplaced Laterality: unspecified laterality Qualified Code(s): S92.109A - Unspecified fracture of unspecified talus, initial encounter for closed fracture (4) Type 2 diabetes mellitus Current Visit: Yes Status: Acute Assessment and plan: Patient was on insulin but developed hypoglycemia. We will hold the insulin now , closely follow up sugar level. Add metformin 500mg bid. Qualifiers: Diabetes mellitus complication status: with hypoglycemia Diabetes mellitus complication detail: without coma Diabetes mellitus residential insulin use: with residential use Qualified Code(s): E11.649 - Type 2 diabetes mellitus with hypoglycemia without coma; Z79.4 - intermediate (current) use of insulin (5) Dehydration Current Visit: Yes Status: Acute Assessment and plan: Improved after hydration (6) Metatarsal bone fracture Current Visit: Yes Status: Acute Assessment and plan: Per podiatry consult, conservative treatment recommended. Qualifiers: Encounter type: initial encounter Metatarsal bone: unspecified metatarsal Fracture type: closed Fracture alignment: nondisplaced Laterality: unspecified laterality Qualified Code(s): S92.309A - Fracture of unspecified metatarsal bone(s), unspecified foot, initial encounter for closed fracture (7) Acute kidney injury Current Visit: Yes Status: Acute Assessment and plan: Improved after hydration (8) DVT prophylaxis Current Visit: Yes Status: Acute Assessment and plan: Heparin subcutaneously (9) Elevated d-dimer Current Visit: Yes Status: Acute Assessment and plan: CTA and Doppler B/L leg are negative. (10) Thyroid nodule Current Visit: Yes Status: Acute Assessment and plan: Confirmed by US, multiple nodules, need FNA. Thyroid function WNL. - Time Spent With Patient 25 - 35 minutes - Subjective Interval history: Patient is a 67-year-old female admitted for multiple falls. Her past medical history is significant for diabetes, hypertension, and TIA. Patient was seen and examined, patient is more awake alert. complained both feet pain. Podiatry recommendation will be followed. Hypoglycemia has improved. Vitals are stable. US thyroid shows nodules needs FNA, thyroid function wnl. Pt's sugar level is at around 200 without any DM meds. Will add metformin 500mg bid. - Constitutional Vitals: Temp Pulse Resp BP Pulse Ox 98.8 F 78 20 100/60 93 04/17/17 11:05 04/17/17 11:53 04/17/17 11:53 04/17/17 11:53 04/17/17 07:20 General appearance: Present: A&O X 3, pleasant, no acute distress - Head Head exam: Present: atraumatic, normocephalic - Eye Eye exam: Present: PERRL, conjuntiva pink, sclera anicteric Pupils: Present: PERRL - Neck Neck exam general surgery: Present: supple, trachea midline. Absent: lymphadenopathy - Respiratory Respiratory exam: Present: CTAB. Absent: accessory muscle use, rales, rhonchi, wheezes - Cardiovascular Cardiovascular exam: Present: RRR, +S1, +S2. Absent: diastolic murmur, gallop, rubs, systolic murmur - GI/Abdominal GI/Abdominal exam: Present: normal bowel sounds, soft, no peritoneal signs. Absent: distended, tenderness - Extremities Exam Extremities exam: Present: warm, radial pulses palpable and symetrical. Absent : calf tenderness, cyanotic, pedal edema - Neurological Exam Neurological exam: Present: CN II-XII intact, oriented X3, no focal deficits. Absent: pronater drift, facial droop, speech deficit - Skin Skin exam: Present: dry, intact Internal Medicine: Result - Labs CBC & Chem 7: 04/17/17 05:18 04/17/17 05:18 Labs: Short CBC 04/17/17 Range/Units 05:18 WBC 10.8 (4.3-11.1) K/mcL Hgb 11.6 (11.5-15.4) g/dL Hct 34.6 L (35.3-44.9) % Plt Count 308 (140-400) K/mcL Neutrophils # 7.8 (1.6-8.9) K/mcL BMP 04/17/17 05:18 Sodium 137 Potassium 3.9 Chloride 104 Carbon Dioxide 23 BUN 9 Creatinine 0.84 Glucose 215 H Calcium 8.7 Cardiac Enzymes 04/16/17 Range/Units 18:56 Troponin I 0.04 H* (0-0.03) ng/mL - ABG Interpretation ABG results: PT/INR, D-dimer D-Dimer 2098 ng/mLFEU (0-500) H 04/16/17 06:14 - VTE Documentation of Mechanical Device: Venous foot pump, device Consult Discharge Plan - Plan Referrals: Martinez Zaman DO [Primary Care Provider] -
[2017-04-17] MEDS: rOPINIRole 0.25 MG TABLET PO SCH (21:15)
[2017-04-18 05:04] LABS: Basophils % 0.4 %; Eosinophils # 0.2 K/mcL (0.0-0.6); Eosinophils % 2.6 %; Hematocrit 33.9 % (35.3-44.9); Hemoglobin 11.3 g/dL (11.5-15.4); Immature Granulocytes % 0.3 % (0-4); Lymphocytes # 2.3 K/mcL (0.6-4.6); Lymphocytes % 25.4 %; Mean Corpuscular HGB Conc 33.3 g/dL (31.6-35.5); Mean Corpuscular Volume 86.9 fL (83.0-100.0); Mean Platelet Volume 9.9 fL (9.4-12.4); Monocytes % 10.6 %; Neutrophils # 5.4 K/mcL (1.6-8.9); Platelet Count 337 K/mcL (140-400); Red Cell Distribution Width 13.4 % (11.5-14.5); Segmented Neutrophils % 60.7 %
[2017-04-18 05:20] LABS: BUN/Creatinine Ratio 17 (6-26); Blood Urea Nitrogen 14 mg/dL (7-20); Calcium 8.8 mg/dL (8.6-10.8); Carbon Dioxide 24 mEq/L (19-29); Chloride 106 mEq/L (98-109); Glucose 217 mg/dL (70-99); Osmolality,Calculated 293 (280-300); Potassium 3.9 mEq/L (3.5-4.5); Sodium 138 mEq/L (136-145); eGFR For African Americans > 60 (> 60); eGFR For Non-African Americans > 60 (> 60)
[2017-04-18] MEDS: *HR* Heparin 5,000 UNIT/ML VIAL SQ SCH ×2 (05:35→14:43)
[2017-04-18] MEDS: *HR* Metformin 500 MG TABLET PO SCH (08:26)
[2017-04-18] MEDS: BuPROPion SR (12 HR) 100 MG TABLET PO SCH (08:26)
[2017-04-18] MEDS ORDERED: *HR* Morphine 2 MG/ML SYRINGE IVP PRN (09:27)
[2017-04-18] MEDS ORDERED: traMADol 50 MG TABLET PO PRN (09:27)
[2017-04-18] MEDS ORDERED: *HR* SitaGLIPtin 100 MG TABLET PO SCH (11:15)
--- NOTE | 2017-04-18 11:32 | Discharge Summary ---
Date of Encounter: 04/18/17 Time of Encounter: 10:00 - Discharge Diagnosis (1) Hypoglycemia Priority: Primary Status: Acute (2) Frequent falls Priority: Primary Status: Acute (3) Talar fracture Priority: Primary Status: Acute Qualifiers: Encounter type: initial encounter Fracture type: closed Talus location: unspecified portion of talus Fracture alignment: nondisplaced Laterality: unspecified laterality Qualified Code(s): S92.109A - Unspecified fracture of unspecified talus, initial encounter for closed fracture (4) Type 2 diabetes mellitus Priority: Secondary Status: Acute Qualifiers: Diabetes mellitus complication status: with hypoglycemia Diabetes mellitus complication detail: without coma Diabetes mellitus fpc insulin use: with fpc use Qualified Code(s): E11.649 - Type 2 diabetes mellitus with hypoglycemia without coma; Z79.4 - oil heaterman (current) use of insulin (5) Dehydration Priority: Primary Status: Acute (6) Metatarsal bone fracture Priority: Primary Status: Acute Qualifiers: Encounter type: initial encounter Metatarsal bone: unspecified metatarsal Fracture type: closed Fracture alignment: nondisplaced Laterality: unspecified laterality Qualified Code(s): S92.309A - Fracture of unspecified metatarsal bone(s), unspecified foot, initial encounter for closed fracture (7) Acute kidney injury Priority: Primary Status: Acute (8) DVT prophylaxis Priority: Secondary Status: Acute (9) Elevated d-dimer Priority: Primary Status: Acute (10) Thyroid nodule Priority: Primary Status: Acute - Discharge Medications Prescriptions: Tramadol HCl [Ultram] 50 mg PO QID PRN #10 tablet PRN Reason: Pain Home Medications: Calcium Carb/D3/Magnesium/Zinc [Kyle Mag Zinc + D Tablet] 1 tab PO HS 04/14/17 [ History] Cyclobenzaprine HCl 10 mg PO HS 04/14/17 [History] Gabapentin [Neurontin] 300 mg PO QPM 04/14/17 [History] Ibuprofen [Advil] 200 mg PO BID PRN 04/14/17 [History] Krill/Om-3/Dha/Epa/Phospho/Ast [Krill Oil 1,000 mg Softgel] 1 cap PO DAILY 04/14 [History] Lisinopril [Zestril] 5 mg PO DAILY 04/14/17 [History] Metformin HCl [Metformin HCl ER] 500 mg PO BID 04/14/17 [History] Quetiapine Fumarate [Seroquel] 300 mg PO HS 04/14/17 [History] SitaGLIPtin [Januvia] 100 mg PO DAILY 04/14/17 [History] amLODIPine [Norvasc] 5 mg PO QPM 04/14/17 [History] buPROPion HCl [Bupropion HCl Sr] 200 mg PO DAILY 04/14/17 [History] rOPINIRole [Requip] 0.25 mg PO HS 04/14/17 [History] Tramadol HCl [Ultram] 50 mg PO QID PRN #10 tablet 04/18/17 [Rx] Allergies/Adverse Reactions: Allergies Penicillins [PCN] Allergy (Verified 04/11/17 16:29) Rash Procedures/tests Complete & Pending: Procedures Performed prior 72 hours Category Date Time Status CT angio chest [CT] Stat Cat Scan 04/16/17 07:28 Draft US thyroid [US] Routine Exams 04/16/17 11:00 Completed ECG 12 lead ECG [ECG] Routine Y 04/16/17 05:10 Completed Venous Doppler [EV venous imaging LE BI] Stat Y 04/16/17 08:07 Completed - Notes to Outpatient Provider 1. Patient has hypoglycemia on admission with glucose level 40. Her insulin is on hold. She was a place on metformin and Januvia only for her diabetes. Please follow her glucose level and determine if restart insulin. 2. Patient was found thyroid nodule, outpatient FNA scheduled. Please follow up the pathology result. Date of admission: 04/15/17 16:03 Primary care physician: Luke Welch Consults: 04/15/17 19:07 Consult to Dog Control Officer [CONS] Routine Comment: Reason for Consult: Hypoglycemia with insulin use. 04/18/17 07:29 Consult to Interventional Radiology [CONS] Routine Consulting Provider: Radiology Interventional Cols Reason for Consult: Thyroid nodules, need FNA Call Completed: Yes Discharging clinician: Sanford Ge Anticipated date of discharge: 04/18/17 - Patient Status Disposition: Transfer Inpatient Rehab Fac Condition: Fair Functional capacity at discharge: wheelchair bound Overall status at discharge: patient is back to baseline - Discharge Instructions Follow Up With: Martinez Zaman DO [Primary Care Provider] - - Diet and Activity Activity: as per physical therapy Diet: diabetic diet Interval History: Ms. Mora is a 67 year old female with hypertension, diabetes, history of TIA , presents to the emergency department today with complaints of bilateral foot pain, and multiple falls. Patient reports that she has been falling frequently , fell on Friday and knocked over a metal table which fell on her right foot. She presented to urgent care at that time and was sent home. She reports she fell yesterday and today both her right foot and her left foot hurting, with her right foot having swelling and ecchymosis. Patient reports when she falls she her arms are shaking and she is unable to hold onto anything. She does not notice any leg weakness, lightheadedness. Her description of the events is vague, and not clear exactly how she is falling. She does report that since her arms or shaky she is unable to check her blood sugars and perhaps she has low blood sugar during the episodes where she falls. Her blood sugar was low in the squad according to the ER report. Evaluation in the emergency department included x-rays of her bilateral feet. X-ray of the left foot revealed acute fracture involving head and neck of left fourth metatarsal, acute fracture involving the lateral base of the left fourth phalanx, suspected fracture in the neck of the third metatarsal, questionable acute avulsion fracture of the left talus. X-ray of the right foot showed acute nondisplaced fractures of the third, fourth and possible second metatarsal necks, acute nondisplaced fracture of the lateral base of the fifth proximal phalanx, questionable fracture at the talar head. Lab results revealed elevated white blood cell count of 18.8, likely reactive. Elevated BUN and creatinine of 28 and 1.58, respectively, creatinine is up from baseline of 0.83. Elevated CK of 1055. Lactic acid was within normal limits. Patient was mildly tachycardic with heart rate in the 90s to low 100s, and blood pressure was running low 90s to 100s over 60s. Patient reports she has not been drinking and has not eaten anything all day. On exam, patient alert and oriented, in no acute distress, heart with regular rate and rhythm, lungs clear bilaterally to auscultation. Right foot with swelling and ecchymosis. +2 pulses and good capillary refill. Left foot with +2 pulses and good capillary refill. Hospital course: Ms. Mora is a 67 year old female admitted her for fall and both feet fracture. She was also found hypoglycemia in the emergency room with glucose level lower than 40. Patient was hold insulin and closely monitor glucose level. Her hypoglycemia has improved after holding insulin. Podiatry consult saw patient, no surgery for feet fracture, will keep conservative treatment. Patient was found thyroid nodule incidentally in Hospital, FNA recommended by radiologist. Will schedule FNA as outpatient, called and spoke with patient's PCP Dr. Zaman, who will follow the FNA result. I saw and examined the patient today. She is awake alert, oriented 3. Vitals are stable. Glucose level around 200. Will keep patient on metformin and Januvia. Continue hold insulin. Patient with discharge to rehabilitation center for further management. - Time Spent with Patient Total time spent providing and/or coordinating discharge services: 40 min Greater than 30 minutes - Constitutional Vitals: Temp Pulse Resp BP Pulse Ox 97.7 F 96 18 131/79 99 04/18/17 11:14 04/18/17 11:14 04/18/17 11:14 04/18/17 11:14 04/18/17 11:14 General appearance: Present: A&O X 3, pleasant, no acute distress - Head Head exam: Present: atraumatic, normocephalic - Eye Eye exam: Present: PERRL, conjuntiva pink, sclera anicteric Pupils: Present: PERRL - Neck Neck exam general surgery: Present: supple, trachea midline. Absent: lymphadenopathy - Respiratory Respiratory exam: Present: CTAB. Absent: accessory muscle use, rales, rhonchi, wheezes - Cardiovascular Cardiovascular exam: Present: RRR, +S1, +S2. Absent: diastolic murmur, gallop, rubs, systolic murmur - GI/Abdominal GI/Abdominal exam: Present: normal bowel sounds, soft, no peritoneal signs. Absent: distended, tenderness - Extremities Exam Extremities exam: Present: warm, radial pulses palpable and symetrical. Absent : calf tenderness, cyanotic, pedal edema - Neurological Exam Neurological exam: Present: CN II-XII intact, oriented X3, no focal deficits. Absent: pronater drift, facial droop, speech deficit - Skin Skin exam: Present: dry, intact - VTE Documentation of Mechanical Device: Venous foot pump, device
--- NOTE | 2017-04-18 11:46 | Physician Discharge Referral ---
ExtendedCare Referral Info Transfer To: Rehab Provider in Charge after Transfer: Other - Diagnosis (1) Hypoglycemia Priority: Primary Status: Acute (2) Frequent falls Priority: Primary Status: Acute (3) Talar fracture Priority: Primary Status: Acute (4) Type 2 diabetes mellitus Priority: Secondary Status: Acute (5) Dehydration Priority: Primary Status: Acute (6) Metatarsal bone fracture Priority: Secondary Status: Acute (7) Acute kidney injury Priority: Primary Status: Acute (8) DVT prophylaxis Priority: Secondary Status: Acute (9) Elevated d-dimer Priority: Primary Status: Acute (10) Thyroid nodule Priority: Primary Status: Acute - Transfer Medications Prescriptions: Tramadol HCl [Ultram] 50 mg PO QID PRN #10 tablet PRN Reason: Pain Home Medications: Calcium Carb/D3/Magnesium/Zinc [Kyle Mag Zinc + D Tablet] 1 tab PO HS 04/14/17 [ History] Cyclobenzaprine HCl 10 mg PO HS 04/14/17 [History] Gabapentin [Neurontin] 300 mg PO QPM 04/14/17 [History] Ibuprofen [Advil] 200 mg PO BID PRN 04/14/17 [History] Krill/Om-3/Dha/Epa/Phospho/Ast [Krill Oil 1,000 mg Softgel] 1 cap PO DAILY 04/14 [History] Lisinopril [Zestril] 5 mg PO DAILY 04/14/17 [History] Metformin HCl [Metformin HCl ER] 500 mg PO BID 04/14/17 [History] Quetiapine Fumarate [Seroquel] 300 mg PO HS 04/14/17 [History] SitaGLIPtin [Januvia] 100 mg PO DAILY 04/14/17 [History] amLODIPine [Norvasc] 5 mg PO QPM 04/14/17 [History] buPROPion HCl [Bupropion HCl Sr] 200 mg PO DAILY 04/14/17 [History] rOPINIRole [Requip] 0.25 mg PO HS 04/14/17 [History] Tramadol HCl [Ultram] 50 mg PO QID PRN #10 tablet 04/18/17 [Rx] Allergies/Adverse Reactions: Allergies Penicillins [PCN] Allergy (Verified 04/11/17 16:29) Rash - Respiratory Orders Smoking Cessation: Smoking cessation has been advised. For more information, call the [place] Tobacco Quit Line at 6-134-DVVK-NOW. - Advance Directives Code Status: Full Code - Rehabiliation Orders Rehab Potential: Fair Rehab Orders: Evaluation for Physical Therapy, Evaluation for Occupational Therapy - Diet Orders No Concentrated Sweets (Diabetic diet) CERTIFICATION: I certify that the transfer of the above named patient to an Extended Care Facility is necessary for the continuing treatment of the diagnosis listed. The above information is true and accurate reflection of patient's current condition. Confidential - Redisclosure prohibited without a patient's written consent.
[2017-04-18 15:19] VITALS: BP 123/71
== END 2017-04-18 17:30 | DRG 563 ==
LOC: 3ANU 15:41 → EMEROO 15:41 → SUATTDRO 20:44 → 3ANU 22:05
PROVIDERS: ADMIT Internal Medicine; ATTEND Internal Medicine

== ENCOUNTER 2020-03-05 17:05 | Inpatient (IN) ==
[2020-03-05] MEDS ORDERED: 0.9 % Sodium Chloride 1,000 ML IVC SCH (17:15)
[2020-03-05] MEDS ORDERED: Pantoprazole 40 MG VIAL IVP ONE (17:26)
[2020-03-05 17:46] LABS: Red Cell Distribution Width 13.5 % (11.5-14.5)
[2020-03-05 17:47] LABS: Hemoglobin 15.5 g/dL (11.5-15.4); Mean Corpuscular HGB Conc 30.4 g/dL (31.6-35.5); Mean Corpuscular Hemoglobin 30.8 pg (28.0-33.3); Mean Corpuscular Volume 101.4 fL (83.0-100.0); Mean Platelet Volume 11.2 fL (9.4-12.4); Platelet Count 350 K/mcL (140-400); Red Blood Count 5.03 M/mcL (3.82-4.97)
[2020-03-05 17:49] LABS: Bilirubin,Urine Negative (Negative); Blood,Urine Trace (Negative); Clarity,Urine Clear (Clear); Color,Urine Yellow (Yellow); Glucose,Urine (UA) >=1000 mg/dL (Normal); Ketones,Urine 80 mg/dL (Negative); Leukocyte Esterase,Urine Negative (Negative); Nitrite,Urine Negative (Negative); PH,Urine 5.5 pH Units (5.0-8.0); Protein,Urine 100 mg/dL (Neg-Trace); Specific Gravity,Urine 1.027 (1.010-1.025); Urobilinogen,Urine Normal (Normal)
[2020-03-05 17:51] LABS: Bacteria,Urine None Seen per hpf (None-Few); Hyaline Casts,Urine None Seen per lpf (None-Few); RBC,Urine 0-3 per hpf (0-3); Squamous Epithelial Cell,Urine Many per lpf (None-Few); WBC,Urine 0-3 per hpf (0-3)
[2020-03-05 17:55] LABS: VBG HCO3 5 mEq/L (21-27); VBG PCO2 44 mmHg (41-51); VBG PH 6.68 pH Units (7.32-7.42); VBG PO2 71 mmHg (25-50)
[2020-03-05 17:56] LABS: White Blood Count 36.9 K/mcL (4.3-11.1)
[2020-03-05 17:57] LABS: Amphetamine Screen,Urine Negative ng/mL (Cutoff=1000); Barbiturate Screen,Urine Negative ng/mL (Cutoff=200); Benzodiazepines Screen,Urine Negative ng/mL (Cutoff=200); Cannabinoid Screen,Urine Negative ng/mL (Cutoff = 50); Cocaine Screen,Urine Negative ng/mL (Cutoff= 300); Opiate Screen,Urine Negative ng/mL (Cutoff=300); Phencyclidine Screen,Urine Negative ng/mL (Cutoff=25)
[2020-03-05] MEDS ORDERED: *HR* EPINEPHrine 100 MCG/10 ML SYRINGE IVP ONE (17:57)
[2020-03-05] MEDS ORDERED: *HR* EPINEPHrine 100 MCG/10 ML SYRINGE IVP PRN (18:00)
[2020-03-05] MEDS ORDERED: Sodium Bicarbonate 50 MEQ/50 ML VIAL ONE (18:00)
[2020-03-05] MEDS: Sodium Bicarbonate 50 MEQ/50 ML VIAL IVP ONE ×2 (18:02→18:54)
[2020-03-05] MEDS ORDERED: 0.9 % Sodium Chloride 250 ML ONE (18:03)
[2020-03-05] MEDS ORDERED: *HR* Norepinephrine 4 MG/4 ML VIAL IVC ONE (18:03)
[2020-03-05] MEDS: Norepinephrine 4 MG in 0.9 % Sodium Chloride 250 ML IVC SCH (18:08)
[2020-03-05] MEDS ORDERED: 0.9 % Sodium Chloride 500 ML ONE (18:11)
[2020-03-05 18:13] LABS: Alanine Aminotransferase 15 Units/L (7-52); Albumin/Globulin Ratio 1.5 (1.1-2.2); Alkaline Phosphatase 123 Units/L (34-104); Aspartate Amino Transferase 19 Units/L (13-39); BUN/Creatinine Ratio 17 (6-26); Bilirubin,Total 0.3 mg/dL (0.3-1.0); Blood Urea Nitrogen 44 mg/dL (8-23); Calcium 10.3 mg/dL (8.6-10.3); Chloride 91 mEq/L (98-107); Globulin 2.7 g/dL (2.4-3.5); Magnesium 3.4 mg/dL (1.6-2.6); Phosphorous 13.2 mg/dL (2.7-4.5); Potassium 4.7 mEq/L (3.5-5.1); Salicylate < 2.5 mg/dL (15.0-30.0); Sodium 133 mEq/L (136-145); Total Protein 6.7 g/dL (6.4-8.9); Troponin I 0.03 ng/mL (< 0.04); eGFR For African Americans 22 (> 60); eGFR For Non-African Americans 18 (> 60)
[2020-03-05] MEDS ORDERED: Cefepime HCl 2,000 MG in Water for inj. (sterile) 20 ML IVP STA (18:16)
[2020-03-05] MEDS ORDERED: Insulin Regular, Human 100 UNIT/ML IV ONE (18:17)
[2020-03-05] MEDS ORDERED: *HR* Dextrose 50 % in Water (Syg) 50 ML SYRINGE IVP PRN ×2 (18:17→20:31)
[2020-03-05 18:22] LABS: Basophils # 0.4 K/mcL (0.0-0.2); Lymphocytes # 2.6 K/mcL (0.6-4.6); Monocytes # 3.7 K/mcL (0.0-1.3); Neutrophils # 28.4 K/mcL (1.6-8.9); Platelet Estimate Normal (Normal)
[2020-03-05 18:24] LABS: Glucose 1138 mg/dL (70-105); Osmolality,Calculated 345 (280-300); Thyroid Stimulating Hormone 1.547 mcIU/mL (0.340-5.600)
[2020-03-05] MEDS: Insulin Human Regular 100 UNIT in 0.9 % Sodium Chloride 100 ML IVC SCH (18:46)
[2020-03-05] MEDS: 0.9 % Sodium Chloride w KCl 20 MEQ/1,000 ML MLS IVC SCH (19:00)
[2020-03-05] MEDS ORDERED: Naloxone 0.4 MG/ML INJ IVP PRN (20:29)
[2020-03-05] MEDS ORDERED: D5% in 0.45% NACL 1,000 ML IVC PRN (20:31)
[2020-03-05] MEDS ORDERED: Insulin Regular, Human 100 UNIT/ML IV PRN ×2 (20:31)
[2020-03-05] MEDS ORDERED: Artificial Tears SOLN 15 ML BOTTLE BOTH EYES PRN (20:43)
[2020-03-05 20:48] LABS: ABG Base Excess -26 mEq/L (-2 to 3); ABG HCO3 6 mEq/L (21-27); ABG Oxygen Saturation 100 % (95-98); ABG PCO2 25 mmHg (35-45); ABG PH 6.95 pH Units (7.32-7.45); ABG PO2 559 mmHg (85-104); ABG TCO2 6 mEq/L (20-26); Blood Gas Modality ASSIST CONTROL; Blood Gas VT 480 cc
[2020-03-05 20:51] LABS: Carbon Dioxide 5 mEq/L (23-29)
[2020-03-05] MEDS ORDERED: 0.45 % Sodium Chloride w/KCl 20 MEQ/1,000 ML MLS IVC SCH (21:00)
[2020-03-05] MEDS ORDERED: Ondansetron 4 MG/2 ML VIAL IVP PRN (21:23)
[2020-03-05 21:25] LABS: Hemoglobin 15.3 g/dL (11.5-15.4)
[2020-03-05] MEDS: Chlorhexidine Rinse 15 ML MOUTHWASH MM SCH (21:25)
[2020-03-05 21:26] LABS: Mean Corpuscular HGB Conc 31.9 g/dL (31.6-35.5); Mean Corpuscular Hemoglobin 30.5 pg (28.0-33.3); Mean Corpuscular Volume 95.8 fL (83.0-100.0); Platelet Count 248 K/mcL (140-400); Red Blood Count 5.01 M/mcL (3.82-4.97); Red Cell Distribution Width 13.3 % (11.5-14.5)
[2020-03-05] MEDS: 0.45 % Sodium Chloride w/KCl 20 MEQ/1,000 ML MLS IVC SCH (21:27)
[2020-03-05 21:30] LABS: White Blood Count 32.3 K/mcL (4.3-11.1)
[2020-03-05 21:46] LABS: Lymphocytes # 2.6 K/mcL (0.6-4.6); Monocytes # 1.3 K/mcL (0.0-1.3); Neutrophils # 27.8 K/mcL (1.6-8.9); Platelet Estimate Normal (Normal)
[2020-03-05 22:01] LABS: Calcium 8.2 mg/dL (8.6-10.3); Potassium 4.7 mEq/L (3.5-5.1); Troponin I 0.03 ng/mL (< 0.04)
[2020-03-05] MEDS: Dexmedetomidine HCl 400 MCG/100 ML MLS IVC SCH (22:50)
[2020-03-05 23:26] LABS: Calcium 7.9 mg/dL (8.6-10.3); Potassium 4.3 mEq/L (3.5-5.1)
[2020-03-06] MEDS: 0.45 % Sodium Chloride w/KCl 20 MEQ/1,000 ML MLS IVC SCH ×8 (00:09→11:08)
[2020-03-06] MEDS: MetroNIDAZOLE 500 MG/100 ML 500 MG/100 ML BAG IVPB SCH ×3 (00:09→17:57)
[2020-03-06] MEDS: Artificial Tears SOLN 15 ML BOTTLE BOTH EYES SCH ×6 (00:10→19:59)
[2020-03-06 00:38] LABS: Hematocrit 43.2 % (35.3-44.9)
[2020-03-06 02:50] LABS: VBG HCO3 10 mEq/L (21-27); VBG PCO2 25 mmHg (41-51); VBG PH 7.21 pH Units (7.32-7.42); VBG PO2 48 mmHg (25-50)
[2020-03-06 03:21] LABS: Calcium 7.1 mg/dL (8.6-10.3); Potassium 4.1 mEq/L (3.5-5.1)
[2020-03-06 04:15] LABS: Basophils # 0.1 K/mcL (0.0-0.2); Basophils % 0.4 %; Hematocrit 38.8 % (35.3-44.9); Hemoglobin 13.1 g/dL (11.5-15.4); Lymphocytes # 1.1 K/mcL (0.6-4.6); Lymphocytes % 5.3 %; Mean Corpuscular HGB Conc 33.8 g/dL (31.6-35.5); Mean Corpuscular Hemoglobin 30.8 pg (28.0-33.3); Mean Corpuscular Volume 91.1 fL (83.0-100.0); Monocytes # 1.5 K/mcL (0.0-1.3); Monocytes % 7.6 %; Neutrophils # 16.2 K/mcL (1.6-8.9); Platelet Count 190 K/mcL (140-400); Red Blood Count 4.26 M/mcL (3.82-4.97); Red Cell Distribution Width 13.8 % (11.5-14.5); Segmented Neutrophils % 81.7 %; White Blood Count 19.9 K/mcL (4.3-11.1)
[2020-03-06 04:16] LABS: INR 0.9; Prothrombin Time 10.2 Seconds (9.4-12.1)
[2020-03-06 04:32] LABS: Calcium 7.4 mg/dL (8.6-10.3); Magnesium 1.6 mg/dL (1.6-2.6); Phosphorous 1.3 mg/dL (2.7-4.5)
[2020-03-06 04:37] LABS: ABG PCO2 < 13 mmHg (35-45); ABG PH 7.35 pH Units (7.32-7.45); ABG PO2 227 mmHg (85-104); Blood Gas Modality VC; Blood Gas VT 480 cc
[2020-03-06] MEDS ORDERED: 0.9 % Sodium Chloride 500 ML IVC ONE ×2 (05:01→05:51)
[2020-03-06] MEDS ORDERED: 0.9 % Sodium Chloride 500 ML ONE (05:04)
[2020-03-06] MEDS ORDERED: Calcium Gluconate 1gm/50mL 1 GM/50 ML BAG IVPB PRN (05:10)
[2020-03-06] MEDS ORDERED: *HR* Enoxaparin 30 MG/0.3 ML SYRINGE SQ SCH (06:00)
[2020-03-06] MEDS: Cefepime HCl 1,000 MG in Water for inj. (sterile) 10 ML IVP SCH ×2 (06:12→18:00)
[2020-03-06] MEDS: Pantoprazole 40 MG VIAL IVP SCH ×2 (06:13→17:56)
[2020-03-06] MEDS: Insulin Human Regular 100 UNIT in 0.9 % Sodium Chloride 100 ML IVC SCH ×3 (06:16→12:20)
[2020-03-06] MEDS: Potassium Phosphate 44 MEQ in 0.9 % Sodium Chloride 250 ML IVPB PRN (06:28)
[2020-03-06 06:39] LABS: Hemoglobin 12.5 g/dL (11.5-15.4)
[2020-03-06 07:13] LABS: Calcium 7.6 mg/dL (8.6-10.3); Potassium 3.5 mEq/L (3.5-5.1)
[2020-03-06 08:23] LABS: Estimated Average Glucose 338 mg/dl
[2020-03-06] MEDS: 0.9 % Sodium Chloride 1,000 ML IVC SCH ×8 (09:53→11:08)
[2020-03-06] MEDS: Chlorhexidine Rinse 15 ML MOUTHWASH MM SCH ×2 (09:57→19:59)
[2020-03-06] MEDS: *HR* Midazolam HCl 2 MG/2 ML VIAL IVP PRN ×2 (10:06→13:00)
[2020-03-06 10:49] LABS: VBG HCO3 13 mEq/L (21-27); VBG PCO2 34 mmHg (41-51); VBG PH 7.19 pH Units (7.32-7.42); VBG PO2 69 mmHg (25-50)
[2020-03-06] MEDS: D5% in 0.45% NACL w KCl 20 MEQ/1,000 ML MLS IVC PRN ×3 (11:03→20:06)
[2020-03-06 11:54] LABS: Calcium 6.8 mg/dL (8.6-10.3); Potassium 3.1 mEq/L (3.5-5.1)
[2020-03-06 13:01] LABS: Hematocrit 38.5 % (35.3-44.9); Hemoglobin 12.8 g/dL (11.5-15.4)
[2020-03-06] MEDS ORDERED: *HR* Midazolam HCl 2 MG/2 ML VIAL IVP ONE (13:45)
[2020-03-06 16:30] LABS: Calcium 8.7 mg/dL (8.6-10.3); Potassium 4.1 mEq/L (3.5-5.1)
[2020-03-06] MEDS: Dexmedetomidine HCl 400 MCG/100 ML MLS IVC SCH ×2 (17:39→22:27)
[2020-03-06] MEDS: Norepinephrine 4 MG in 0.9 % Sodium Chloride 250 ML IVC SCH (17:39)
[2020-03-06 18:47] LABS: Calcium 8.7 mg/dL (8.6-10.3); Magnesium 2.1 mg/dL (1.6-2.6); Phosphorous 3.5 mg/dL (2.7-4.5); Potassium 4.5 mEq/L (3.5-5.1)
[2020-03-06] MEDS ORDERED: *HR* Etomidate 20 MG/10 ML AMPUL IVP ONE (19:25)
[2020-03-06] MEDS ORDERED: *HR* Rocuronium Bromide 100 MG/10 ML VIAL IVC ONE (19:25)
[2020-03-06 23:08] LABS: Calcium 8.7 mg/dL (8.6-10.3); Potassium 4.4 mEq/L (3.5-5.1)
[2020-03-06 23:54] LABS: ABG Base Excess -15 mEq/L (-2 to 3); ABG HCO3 10 mEq/L (21-27); ABG Oxygen Saturation 99 % (95-98); ABG PCO2 21 mmHg (35-45); ABG PH 7.28 pH Units (7.32-7.45); ABG PO2 174 mmHg (85-104); ABG TCO2 11 mEq/L (20-26); Blood Gas Modality ASSIST CONTROL; Blood Gas VT 480 cc
[2020-03-07] MEDS: MetroNIDAZOLE 500 MG/100 ML 500 MG/100 ML BAG IVPB SCH ×4 (00:02→23:55)
[2020-03-07] MEDS: Artificial Tears SOLN 15 ML BOTTLE BOTH EYES SCH ×7 (00:03→23:55)
[2020-03-07] MEDS: D5% in 0.45% NACL w KCl 20 MEQ/1,000 ML MLS IVC PRN ×2 (00:27→05:37)
[2020-03-07] MEDS: Insulin Human Regular 100 UNIT in 0.9 % Sodium Chloride 100 ML IVC SCH ×3 (00:50→18:30)
[2020-03-07 04:35] LABS: VBG Ionized Calcium 1.42 mmol/L (1.15-1.35)
[2020-03-07 04:45] LABS: Basophils % 0.2 %; Hematocrit 37.9 % (35.3-44.9); Hemoglobin 12.7 g/dL (11.5-15.4); Lymphocytes # 0.8 K/mcL (0.6-4.6); Mean Corpuscular HGB Conc 33.5 g/dL (31.6-35.5); Mean Corpuscular Hemoglobin 30.5 pg (28.0-33.3); Mean Corpuscular Volume 91.1 fL (83.0-100.0); Mean Platelet Volume 10.4 fL (9.4-12.4); Monocytes # 1.5 K/mcL (0.0-1.3); Monocytes % 7.8 %; Neutrophils # 16.6 K/mcL (1.6-8.9); Platelet Count 152 K/mcL (140-400); Red Blood Count 4.16 M/mcL (3.82-4.97); Red Cell Distribution Width 14.8 % (11.5-14.5); White Blood Count 19.3 K/mcL (4.3-11.1)
[2020-03-07 05:03] LABS: Calcium 8.7 mg/dL (8.6-10.3); Potassium 4.1 mEq/L (3.5-5.1)
[2020-03-07 05:06] LABS: ABG Base Excess -14 mEq/L (-2 to 3); ABG HCO3 10 mEq/L (21-27); ABG Oxygen Saturation 99 % (95-98); ABG PCO2 21 mmHg (35-45); ABG PO2 165 mmHg (85-104); ABG TCO2 11 mEq/L (20-26); Blood Gas Modality ASSIST CONTROL; Blood Gas VT 480 cc
[2020-03-07] MEDS: Pantoprazole 40 MG VIAL IVP SCH ×2 (05:31→17:35)
[2020-03-07] MEDS: Cefepime HCl 1,000 MG in Water for inj. (sterile) 10 ML IVP SCH ×2 (05:32→17:35)
[2020-03-07 06:07] LABS: Magnesium 2.1 mg/dL (1.6-2.6)
[2020-03-07 06:33] LABS: Phosphorous 2.7 mg/dL (2.7-4.5)
[2020-03-07] MEDS: Sodium Bicarbonate 150 MEQ in D5% in Water 1,000 ML IVC SCH ×3 (08:53→19:36)
[2020-03-07] MEDS ORDERED: Aminoglycoside Consult 1 EACH MC ONE (09:06)
[2020-03-07] MEDS: Chlorhexidine Rinse 15 ML MOUTHWASH MM SCH ×2 (09:11→20:25)
[2020-03-07] MEDS ORDERED: *HR* Dextrose 50 % in Water (Syg) 50 ML SYRINGE IVP PRN (09:55)
[2020-03-07] MEDS: Potassium Phosphate 44 MEQ in 0.9 % Sodium Chloride 250 ML IVPB PRN ×2 (10:42→23:03)
[2020-03-07] MEDS: Norepinephrine 4 MG in 0.9 % Sodium Chloride 250 ML IVC SCH (17:35)
[2020-03-07] MEDS: Nystatin POWDER 30 GM BOTTLE TP SCH (20:26)
[2020-03-07] MEDS: Nystatin Cream 15 GM TUBE TP SCH (20:26)
[2020-03-07 20:35] LABS: ABG Base Excess 1 mEq/L (-2 to 3); ABG HCO3 21 mEq/L (21-27); ABG Oxygen Saturation 94 % (95-98); ABG PCO2 22 mmHg (35-45); ABG PO2 56 mmHg (85-104); ABG TCO2 22 mEq/L (20-26); Blood Gas Modality ASSIST CONTROL; Blood Gas VT 480 cc
[2020-03-07 20:53] LABS: VBG Ionized Calcium 1.19 mmol/L (1.15-1.35); VBG PH 7.48 pH Units (7.32-7.42)
[2020-03-07 21:10] LABS: Magnesium 1.7 mg/dL (1.6-2.6); Potassium 3.3 mEq/L (3.5-5.1)
[2020-03-08] MEDS: Dexmedetomidine HCl 400 MCG/100 ML MLS IVC SCH (02:51)
[2020-03-08] MEDS: Artificial Tears SOLN 15 ML BOTTLE BOTH EYES SCH ×5 (04:02→20:09)
[2020-03-08] MEDS: 0.9 % Sodium Chloride w KCl 20 MEQ/1,000 ML MLS IVC SCH (04:35)
[2020-03-08] MEDS: Sodium Bicarbonate 150 MEQ in D5% in Water 1,000 ML IVC SCH ×2 (04:36→04:37)
[2020-03-08 05:25] LABS: ABG Base Excess -2 mEq/L (-2 to 3); ABG HCO3 20 mEq/L (21-27); ABG Oxygen Saturation 97 % (95-98); ABG PCO2 25 mmHg (35-45); ABG PH 7.51 pH Units (7.32-7.45); ABG PO2 75 mmHg (85-104); ABG TCO2 21 mEq/L (20-26); Blood Gas Modality ASSIST CONTROL; Blood Gas VT 400 cc
[2020-03-08] MEDS: Cefepime HCl 1,000 MG in Water for inj. (sterile) 10 ML IVP SCH ×2 (06:38→19:06)
[2020-03-08] MEDS: Pantoprazole 40 MG VIAL IVP SCH ×2 (06:38→19:00)
[2020-03-08 07:16] LABS: Basophils % 0.2 %; Eosinophils % 0.2 %; Hematocrit 36.9 % (35.3-44.9); Hemoglobin 12.3 g/dL (11.5-15.4); Immature Granulocytes % 1.9 % (0-4); Lymphocytes # 0.8 K/mcL (0.6-4.6); Lymphocytes % 4.4 %; Mean Corpuscular HGB Conc 33.3 g/dL (31.6-35.5); Mean Corpuscular Hemoglobin 29.9 pg (28.0-33.3); Mean Corpuscular Volume 89.8 fL (83.0-100.0); Mean Platelet Volume 10.3 fL (9.4-12.4); Monocytes # 1.2 K/mcL (0.0-1.3); Monocytes % 6.3 %; Neutrophils # 16.2 K/mcL (1.6-8.9); Platelet Count 144 K/mcL (140-400); Red Blood Count 4.11 M/mcL (3.82-4.97); Red Cell Distribution Width 15.1 % (11.5-14.5); White Blood Count 18.6 K/mcL (4.3-11.1)
[2020-03-08 07:31] LABS: Platelet Estimate Normal (Normal)
[2020-03-08 07:35] LABS: Calcium 8.1 mg/dL (8.6-10.3)
[2020-03-08] MEDS: Ringers Solution, Lactated 1,000 ML IVC SCH ×3 (08:25→20:09)
[2020-03-08] MEDS: Chlorhexidine Rinse 15 ML MOUTHWASH MM SCH ×2 (08:25→20:09)
[2020-03-08] MEDS: MetroNIDAZOLE 500 MG/100 ML 500 MG/100 ML BAG IVPB SCH ×3 (08:25→23:18)
[2020-03-08] MEDS: Nystatin POWDER 30 GM BOTTLE TP SCH ×2 (08:26→20:08)
[2020-03-08] MEDS: Nystatin Cream 15 GM TUBE TP SCH ×2 (08:26→20:08)
[2020-03-08 10:58] LABS: Phosphorous 4.2 mg/dL (2.7-4.5)
[2020-03-08] MEDS: *HR* Midazolam HCl 2 MG/2 ML VIAL IVP PRN (13:19)
[2020-03-08 16:13] LABS: ABG Base Excess 1 mEq/L (-2 to 3); ABG HCO3 24 mEq/L (21-27); ABG Oxygen Saturation 97 % (95-98); ABG PCO2 32 mmHg (35-45); ABG PH 7.48 pH Units (7.32-7.45); ABG PO2 81 mmHg (85-104); ABG TCO2 25 mEq/L (20-26); Blood Gas Modality AF; Blood Gas VT 300 cc
[2020-03-09] MEDS: Ringers Solution, Lactated 1,000 ML IVC SCH ×2 (01:08→20:14)
[2020-03-09 03:42] LABS: Basophils % 0.2 %; Hematocrit 31.8 % (35.3-44.9); Immature Granulocytes % 0.4 % (0-4); Lymphocytes # 1.1 K/mcL (0.6-4.6); Lymphocytes % 6.6 %; Mean Corpuscular Hemoglobin 30.5 pg (28.0-33.3); Mean Corpuscular Volume 92.4 fL (83.0-100.0); Mean Platelet Volume 10.8 fL (9.4-12.4); Monocytes # 1.4 K/mcL (0.0-1.3); Monocytes % 8.7 %; Neutrophils # 13.4 K/mcL (1.6-8.9); Platelet Count 129 K/mcL (140-400); Red Blood Count 3.44 M/mcL (3.82-4.97); Red Cell Distribution Width 15.4 % (11.5-14.5); Segmented Neutrophils % 84.1 %; White Blood Count 15.9 K/mcL (4.3-11.1)
[2020-03-09 03:44] LABS: Hemoglobin 10.5 g/dL (11.5-15.4)
[2020-03-09 03:58] LABS: Calcium 7.9 mg/dL (8.6-10.3); Potassium 3.9 mEq/L (3.5-5.1)
[2020-03-09] MEDS: Cefepime HCl 1,000 MG in Water for inj. (sterile) 10 ML IVP SCH ×2 (06:21→18:29)
[2020-03-09] MEDS: Pantoprazole 40 MG VIAL IVP SCH ×2 (06:21→18:29)
[2020-03-09] MEDS: Insulin Human Regular 100 UNIT in 0.9 % Sodium Chloride 100 ML IVC SCH (06:24)
[2020-03-09 09:01] LABS: Potassium 4.3 mEq/L (3.5-5.1)
[2020-03-09] MEDS: MetroNIDAZOLE 500 MG/100 ML 500 MG/100 ML BAG IVPB SCH ×3 (09:30→23:10)
[2020-03-09] MEDS: Nystatin POWDER 30 GM BOTTLE TP SCH (09:30)
[2020-03-09] MEDS: Nystatin Cream 15 GM TUBE TP SCH ×2 (09:31→20:14)
[2020-03-09] MEDS ORDERED: Haloperidol Lactate 5 MG/ML VIAL IVP ONE ×2 (09:33→14:15)
[2020-03-09] MEDS ORDERED: D5% in Water 1,000 ML IVC PRN (09:36)
[2020-03-09] MEDS ORDERED: Dextrose Gel 15 GM/37.5 ML TUBE PO PRN ×2 (09:36)
[2020-03-09] MEDS ORDERED: Insulin DETEMIR 100 UNIT/ML X5UNITS SQ SCH (09:45)
[2020-03-09] MEDS: Insulin LISPRO 300 UNITS/3 ML VIAL SQ SCH ×4 (12:14→23:16)
[2020-03-09 12:39] LABS: Bilirubin,Urine Negative (Negative); Blood,Urine Large (Negative); Color,Urine Yellow (Yellow); Glucose,Urine (UA) 100 mg/dL (Normal); Ketones,Urine 40 mg/dL (Negative); Leukocyte Esterase,Urine Large (Negative); Nitrite,Urine Negative (Negative); PH,Urine 5.5 pH Units (5.0-8.0); Protein,Urine 100 mg/dL (Neg-Trace); Urobilinogen,Urine Normal (Normal)
[2020-03-09 12:43] LABS: Bacteria,Urine None Seen per hpf (None-Few); Squamous Epithelial Cell,Urine Moderate per lpf (None-Few); WBC,Urine TNTC per hpf (0-3)
[2020-03-09 12:49] LABS: Clarity,Urine Hazy (Clear)
[2020-03-09 12:59] LABS: RBC,Urine 15-30 per hpf (0-3); Yeast,Urine Many per hpf (None Seen)
[2020-03-09 18:11] LABS: Calcium 8.3 mg/dL (8.6-10.3); Potassium 3.4 mEq/L (3.5-5.1)
[2020-03-09] MEDS: Dexmedetomidine HCl 400 MCG/100 ML MLS IVC SCH (20:15)
[2020-03-10] MEDS: Insulin LISPRO 300 UNITS/3 ML VIAL SQ SCH ×5 (04:05→21:47)
[2020-03-10 04:19] LABS: Hematocrit 32.4 % (35.3-44.9); Hemoglobin 10.3 g/dL (11.5-15.4); Mean Corpuscular HGB Conc 31.8 g/dL (31.6-35.5); Mean Corpuscular Hemoglobin 29.9 pg (28.0-33.3); Mean Corpuscular Volume 93.9 fL (83.0-100.0); Mean Platelet Volume 10.3 fL (9.4-12.4); Platelet Count 163 K/mcL (140-400); Red Blood Count 3.45 M/mcL (3.82-4.97); Red Cell Distribution Width 15.2 % (11.5-14.5); White Blood Count 12.3 K/mcL (4.3-11.1)
[2020-03-10 04:40] LABS: BUN/Creatinine Ratio 19 (6-26); Blood Urea Nitrogen 19 mg/dL (8-23); Calcium 8.4 mg/dL (8.6-10.3); Carbon Dioxide 20 mEq/L (23-29); Chloride 114 mEq/L (98-107); Glucose 186 mg/dL (70-105); Magnesium 1.8 mg/dL (1.6-2.6); Osmolality,Calculated 307 (280-300); Potassium 4.1 mEq/L (3.5-5.1); Sodium 145 mEq/L (136-145); eGFR For African Americans > 60 (> 60); eGFR For Non-African Americans 55 (> 60)
[2020-03-10] MEDS: Cefepime HCl 1,000 MG in Water for inj. (sterile) 10 ML IVP SCH ×2 (05:07→18:11)
[2020-03-10] MEDS: Ringers Solution, Lactated 1,000 ML IVC SCH ×3 (05:07→20:10)
[2020-03-10] MEDS: Pantoprazole 40 MG VIAL IVP SCH ×2 (05:07→18:08)
[2020-03-10] MEDS: MetroNIDAZOLE 500 MG/100 ML 500 MG/100 ML BAG IVPB SCH ×2 (08:54→16:05)
[2020-03-10] MEDS: Nystatin Cream 15 GM TUBE TP SCH ×2 (08:57→21:30)
[2020-03-10] MEDS ORDERED: Insulin DETEMIR 100 UNIT/ML X5UNITS SQ SCH (09:00)
[2020-03-10] MEDS ORDERED: E-Z-HD (BARIUM SULF) SUSPENSION PO ONE (11:48)
[2020-03-10] MEDS ORDERED: E-Z-PAQUE (BARIUM SULF) SUSP 1 BOTTLE PO ONE (11:48)
[2020-03-10] MEDS ORDERED: QUEtiapine Fumarate 100 MG TABLET PO SCH (12:15)
[2020-03-10] MEDS ORDERED: Dextrose Gel 15 GM/37.5 ML TUBE PO PRN ×2 (14:41)
[2020-03-10] MEDS ORDERED: D5% in Water 1,000 ML IVC PRN (14:41)
[2020-03-10] MEDS ORDERED: Ondansetron 4 MG/2 ML VIAL IVP PRN (14:41)
[2020-03-10] MEDS ORDERED: Naloxone 0.4 MG/ML INJ IVP PRN (14:41)
[2020-03-10] MEDS ORDERED: *HR* Dextrose 50 % in Water (Syg) 50 ML SYRINGE IVP PRN (14:41)
[2020-03-10] MEDS: Gabapentin 300 MG CAPSULE PO SCH (20:31)
[2020-03-10] MEDS: QUEtiapine Fumarate 100 MG TABLET PO SCH (20:32)
[2020-03-11] MEDS: MetroNIDAZOLE 500 MG/100 ML 500 MG/100 ML BAG IVPB SCH ×3 (00:43→16:35)
[2020-03-11] MEDS: Insulin LISPRO 300 UNITS/3 ML VIAL SQ SCH ×5 (00:58→16:43)
[2020-03-11 04:40] LABS: Hematocrit 32.3 % (35.3-44.9); Mean Corpuscular Hemoglobin 29.7 pg (28.0-33.3); Mean Corpuscular Volume 95.8 fL (83.0-100.0); Mean Platelet Volume 9.4 fL (9.4-12.4); Platelet Count 203 K/mcL (140-400); Red Blood Count 3.37 M/mcL (3.82-4.97); White Blood Count 8.2 K/mcL (4.3-11.1)
[2020-03-11] MEDS: Ringers Solution, Lactated 1,000 ML IVC SCH (05:01)
[2020-03-11] MEDS: Pantoprazole 40 MG VIAL IVP SCH ×2 (05:01→18:36)
[2020-03-11 05:11] LABS: BUN/Creatinine Ratio 18 (6-26); Blood Urea Nitrogen 14 mg/dL (8-23); Carbon Dioxide 26 mEq/L (23-29); Chloride 112 mEq/L (98-107); Glucose 142 mg/dL (70-105); Magnesium 2.1 mg/dL (1.6-2.6); Osmolality,Calculated 301 (280-300); Phosphorous 3.6 mg/dL (2.7-4.5); Potassium 3.5 mEq/L (3.5-5.1); Sodium 144 mEq/L (136-145); eGFR For African Americans > 60 (> 60); eGFR For Non-African Americans > 60 (> 60)
[2020-03-11] MEDS: Cefepime HCl 1,000 MG in Water for inj. (sterile) 10 ML IVP SCH ×2 (06:04→18:34)
[2020-03-11] MEDS: Aspirin 81 MG TAB.CHEW PO SCH (08:39)
[2020-03-11] MEDS: amLODIPine 5 MG TABLET PO SCH (08:39)
[2020-03-11] MEDS: lisinopriL 5 MG TABLET PO SCH (08:39)
[2020-03-11] MEDS: Nystatin Cream 15 GM TUBE TP SCH ×2 (08:41→22:01)
[2020-03-11] MEDS: Insulin DETEMIR 100 UNIT/ML X5UNITS SQ SCH (08:55)
[2020-03-11] MEDS ORDERED: Ringers Solution, Lactated 1,000 ML IVC SCH (14:25)
[2020-03-11] MEDS: *HR* Heparin 5,000 UNIT/ML VIAL SQ SCH (18:36)
[2020-03-11] MEDS: QUEtiapine Fumarate 100 MG TABLET PO SCH (21:58)
[2020-03-11] MEDS: Gabapentin 300 MG CAPSULE PO SCH (21:59)
[2020-03-12] MEDS: MetroNIDAZOLE 500 MG/100 ML 500 MG/100 ML BAG IVPB SCH ×2 (00:12→08:01)
[2020-03-12 02:59] LABS: Hematocrit 31.8 % (35.3-44.9); Hemoglobin 10.1 g/dL (11.5-15.4); Mean Corpuscular HGB Conc 31.8 g/dL (31.6-35.5); Mean Corpuscular Hemoglobin 30.3 pg (28.0-33.3); Mean Corpuscular Volume 95.5 fL (83.0-100.0); Mean Platelet Volume 9.4 fL (9.4-12.4); Platelet Count 232 K/mcL (140-400); Red Blood Count 3.33 M/mcL (3.82-4.97); Red Cell Distribution Width 14.5 % (11.5-14.5); White Blood Count 6.5 K/mcL (4.3-11.1)
[2020-03-12 03:18] LABS: BUN/Creatinine Ratio 15 (6-26); Blood Urea Nitrogen 13 mg/dL (8-23); Calcium 8.1 mg/dL (8.6-10.3); Carbon Dioxide 27 mEq/L (23-29); Chloride 110 mEq/L (98-107); Glucose 215 mg/dL (70-105); Osmolality,Calculated 301 (280-300); Sodium 142 mEq/L (136-145); eGFR For African Americans > 60 (> 60); eGFR For Non-African Americans > 60 (> 60)
[2020-03-12 03:28] LABS: Lymphocytes # 1.8 K/mcL (0.6-4.6); Monocytes # 0.5 K/mcL (0.0-1.3); Neutrophils # 4.2 K/mcL (1.6-8.9); Platelet Estimate Normal (Normal); Reactive Lymphocytes Present (Not Present)
[2020-03-12] MEDS: *HR* Heparin 5,000 UNIT/ML VIAL SQ SCH ×2 (05:39→18:31)
[2020-03-12] MEDS: Pantoprazole 40 MG VIAL IVP SCH ×2 (05:40→18:31)
[2020-03-12] MEDS: Cefepime HCl 1,000 MG in Water for inj. (sterile) 10 ML IVP SCH (05:40)
[2020-03-12] MEDS: lisinopriL 5 MG TABLET PO SCH (08:01)
[2020-03-12] MEDS: amLODIPine 5 MG TABLET PO SCH (08:01)
[2020-03-12] MEDS: Aspirin 81 MG TAB.CHEW PO SCH (08:01)
[2020-03-12] MEDS: Insulin DETEMIR 100 UNIT/ML X5UNITS SQ SCH (08:02)
[2020-03-12] MEDS: Insulin LISPRO 300 UNITS/3 ML VIAL SQ SCH ×3 (08:03→17:31)
[2020-03-12] MEDS: Nystatin Cream 15 GM TUBE TP SCH ×2 (08:03→21:47)
[2020-03-12] MEDS: QUEtiapine Fumarate 100 MG TABLET PO SCH (21:47)
[2020-03-12] MEDS: Gabapentin 300 MG CAPSULE PO SCH (21:47)
[2020-03-13 04:36] LABS: Basophils % 0.5 %; Eosinophils # 0.2 K/mcL (0.0-0.6); Eosinophils % 2.4 %; Hematocrit 32.8 % (35.3-44.9); Hemoglobin 10.4 g/dL (11.5-15.4); Immature Granulocytes % 1.5 % (0-4); Lymphocytes # 1.2 K/mcL (0.6-4.6); Lymphocytes % 14.3 %; Mean Corpuscular HGB Conc 31.7 g/dL (31.6-35.5); Mean Corpuscular Hemoglobin 30.1 pg (28.0-33.3); Mean Corpuscular Volume 95.1 fL (83.0-100.0); Mean Platelet Volume 9.8 fL (9.4-12.4); Monocytes # 1.3 K/mcL (0.0-1.3); Monocytes % 15.4 %; Neutrophils # 5.5 K/mcL (1.6-8.9); Platelet Count 296 K/mcL (140-400); Red Blood Count 3.45 M/mcL (3.82-4.97); Red Cell Distribution Width 14.2 % (11.5-14.5); Segmented Neutrophils % 65.9 %; White Blood Count 8.4 K/mcL (4.3-11.1)
[2020-03-13 04:59] LABS: BUN/Creatinine Ratio 11 (6-26); Blood Urea Nitrogen 9 mg/dL (8-23); Calcium 8.2 mg/dL (8.6-10.3); Carbon Dioxide 26 mEq/L (23-29); Chloride 109 mEq/L (98-107); Glucose 218 mg/dL (70-105); Magnesium 1.9 mg/dL (1.6-2.6); Osmolality,Calculated 303 (280-300); Potassium 3.5 mEq/L (3.5-5.1); Sodium 144 mEq/L (136-145); eGFR For African Americans > 60 (> 60); eGFR For Non-African Americans > 60 (> 60)
[2020-03-13] MEDS: *HR* Heparin 5,000 UNIT/ML VIAL SQ SCH ×2 (05:14→17:02)
[2020-03-13] MEDS: Pantoprazole 40 MG VIAL IVP SCH (05:15)
[2020-03-13] MEDS: Insulin DETEMIR 100 UNIT/ML X5UNITS SQ SCH (09:19)
[2020-03-13] MEDS: amLODIPine 5 MG TABLET PO SCH (09:19)
[2020-03-13] MEDS: lisinopriL 5 MG TABLET PO SCH (09:19)
[2020-03-13] MEDS: Aspirin 81 MG TAB.CHEW PO SCH (09:19)
[2020-03-13] MEDS: Nystatin Cream 15 GM TUBE TP SCH ×2 (09:20→22:07)
[2020-03-13] MEDS: Insulin LISPRO 300 UNITS/3 ML VIAL SQ SCH ×3 (09:20→17:02)
[2020-03-13] MEDS: QUEtiapine Fumarate 100 MG TABLET PO SCH (22:05)
[2020-03-13] MEDS: Gabapentin 300 MG CAPSULE PO SCH (22:06)
[2020-03-14] MEDS: *HR* Heparin 5,000 UNIT/ML VIAL SQ SCH (06:17)
[2020-03-14 06:58] LABS: Basophils % 0.3 %; Eosinophils # 0.2 K/mcL (0.0-0.6); Eosinophils % 2.2 %; Hematocrit 32.8 % (35.3-44.9); Hemoglobin 10.3 g/dL (11.5-15.4); Immature Granulocytes % 1.3 % (0-4); Lymphocytes # 1.7 K/mcL (0.6-4.6); Lymphocytes % 18.5 %; Mean Corpuscular HGB Conc 31.4 g/dL (31.6-35.5); Mean Corpuscular Hemoglobin 29.8 pg (28.0-33.3); Mean Corpuscular Volume 94.8 fL (83.0-100.0); Mean Platelet Volume 9.4 fL (9.4-12.4); Monocytes # 1.1 K/mcL (0.0-1.3); Monocytes % 11.3 %; Neutrophils # 6.2 K/mcL (1.6-8.9); Platelet Count 390 K/mcL (140-400); Red Blood Count 3.46 M/mcL (3.82-4.97); Red Cell Distribution Width 14.1 % (11.5-14.5); Segmented Neutrophils % 66.4 %; White Blood Count 9.3 K/mcL (4.3-11.1)
[2020-03-14 07:16] LABS: BUN/Creatinine Ratio 10 (6-26); Blood Urea Nitrogen 8 mg/dL (8-23); Calcium 8.3 mg/dL (8.6-10.3); Carbon Dioxide 29 mEq/L (23-29); Chloride 107 mEq/L (98-107); Glucose 220 mg/dL (70-105); Magnesium 1.9 mg/dL (1.6-2.6); Osmolality,Calculated 297 (280-300); Potassium 3.6 mEq/L (3.5-5.1); Sodium 141 mEq/L (136-145); eGFR For African Americans > 60 (> 60); eGFR For Non-African Americans > 60 (> 60)
[2020-03-14] MEDS: Insulin LISPRO 300 UNITS/3 ML VIAL SQ SCH ×2 (08:50→11:56)
[2020-03-14] MEDS: Aspirin 81 MG TAB.CHEW PO SCH (08:51)
[2020-03-14] MEDS: Nystatin Cream 15 GM TUBE TP SCH (08:51)
[2020-03-14] MEDS: amLODIPine 5 MG TABLET PO SCH (08:51)
[2020-03-14] MEDS: lisinopriL 5 MG TABLET PO SCH (08:51)
[2020-03-14] MEDS ORDERED: Insulin DETEMIR 100 UNIT/ML X5UNITS SQ SCH (09:00)
[2020-03-14 10:58] VITALS: BP 146/76
== END 2020-03-14 15:34 | disposition other institution (70) | DRG 871 ==
LOC: EMEROOARM 17:05 → ICNU 19:24 → INTOOBSV 19:24 → ICNU 20:15 → SUATTDRO 03-07 16:05 → 3NENU 03-10 17:31 → 3ANU 03-11 11:14
PROVIDERS: ADMIT Internal Medicine; ATTEND Internal Medicine

== ENCOUNTER 2020-04-04 14:52 | Inpatient (IN) ==
[2020-04-04] MEDS ORDERED: 0.9 % Sodium Chloride 1,000 ML IVC ONE (15:19)
[2020-04-04] MEDS ORDERED: 0.9 % Sodium Chloride 1,000 ML ONE (15:19)
[2020-04-04 15:45] LABS: Basophils # 0.1 K/mcL (0.0-0.2); Basophils % 0.6 %; Eosinophils # 0.2 K/mcL (0.0-0.6); Eosinophils % 2.2 %; Hematocrit 43.8 % (35.3-44.9); Immature Granulocytes % 0.6 % (0-4); Lymphocytes # 2.4 K/mcL (0.6-4.6); Lymphocytes % 21.5 %; Mean Corpuscular Hemoglobin 29.5 pg (28.0-33.3); Mean Corpuscular Volume 92.2 fL (83.0-100.0); Mean Platelet Volume 9.9 fL (9.4-12.4); Monocytes # 0.9 K/mcL (0.0-1.3); Neutrophils # 7.3 K/mcL (1.6-8.9); Platelet Count 475 K/mcL (140-400); Red Blood Count 4.75 M/mcL (3.82-4.97); Red Cell Distribution Width 13.2 % (11.5-14.5); Segmented Neutrophils % 67.1 %
[2020-04-04 15:48] LABS: INR 0.9; Prothrombin Time 10.3 Seconds (9.4-12.1)
[2020-04-04 15:51] LABS: Activated Partial Thrombo Time 39.5 Seconds (26.0-36.0)
[2020-04-04] MEDS ORDERED: Cefepime HCl 2,000 MG in Water for inj. (sterile) 20 ML IVP ONE (16:00)
[2020-04-04 16:10] LABS: Alanine Aminotransferase 8 Units/L (7-52); Albumin 4.6 g/dL (3.5-5.7); Albumin/Globulin Ratio 1.4 (1.1-2.2); Alkaline Phosphatase 87 Units/L (34-104); Aspartate Amino Transferase 11 Units/L (13-39); BUN/Creatinine Ratio 11 (6-26); Bilirubin,Direct 0.1 mg/dL (0.0-0.2); Bilirubin,Indirect 0.3 mg/dL (0.0-1.0); Bilirubin,Total 0.4 mg/dL (0.3-1.0); Blood Urea Nitrogen 45 mg/dL (8-23); Calcium 10.2 mg/dL (8.6-10.3); Carbon Dioxide 19 mEq/L (23-29); Chloride 98 mEq/L (98-107); Creatine Kinase 53 Units/L (30-223); Globulin 3.3 g/dL (2.4-3.5); Glucose 243 mg/dL (70-105); Lipase 4 Units/L (11-82); Magnesium 1.9 mg/dL (1.6-2.6); Osmolality,Calculated 300 (280-300); Phosphorous 5.9 mg/dL (2.7-4.5); Potassium 4.8 mEq/L (3.5-5.1); Sodium 135 mEq/L (136-145); Total Protein 7.9 g/dL (6.4-8.9); Troponin I < 0.03 ng/mL (< 0.04); eGFR For African Americans 13 (> 60); eGFR For Non-African Americans 11 (> 60)
[2020-04-04 16:21] LABS: Thyroid Stimulating Hormone 1.098 mcIU/mL (0.340-5.600)
[2020-04-04 16:22] LABS: ABG Base Excess -6 mEq/L (-2 to 3); ABG HCO3 21 mEq/L (21-27); ABG Oxygen Saturation 99 % (95-98); ABG PCO2 46 mmHg (35-45); ABG PH 7.27 pH Units (7.32-7.45); ABG PO2 140 mmHg (85-104); ABG TCO2 22 mEq/L (20-26)
[2020-04-04 17:03] LABS: Bilirubin,Urine Small (Negative); Blood,Urine Negative (Negative); Clarity,Urine Turbid (Clear); Color,Urine Dark Yellow (Yellow); Glucose,Urine (UA) 250 mg/dL (Normal); Ketones,Urine Trace mg/dL (Negative); Leukocyte Esterase,Urine Small (Negative); Nitrite,Urine Negative (Negative); Protein,Urine 100 mg/dL (Neg-Trace); Specific Gravity,Urine 1.023 (1.010-1.025); Urobilinogen,Urine Normal (Normal)
[2020-04-04 17:05] LABS: Bacteria,Urine Few per hpf (None-Few); Hyaline Casts,Urine Few per lpf (None-Few); RBC,Urine 0-3 per hpf (0-3); Squamous Epithelial Cell,Urine Many per lpf (None-Few)
[2020-04-04 17:18] LABS: Granular Casts,Urine Few per lpf (None Seen)
[2020-04-04 17:19] LABS: Transitional Epi Cells,Urine Few per hpf (None-Few)
[2020-04-04] MEDS ORDERED: 0.9 % Sodium Chloride 1,000 ML IVC SCH (17:30)
[2020-04-04] MEDS ORDERED: Ondansetron ODT 4 MG TAB.RAPDIS SL PRN (18:29)
[2020-04-04] MEDS ORDERED: Acetaminophen 325 MG TABLET PO PRN (18:29)
[2020-04-04] MEDS ORDERED: Insulin Regular, Human 100 UNIT/ML IV PRN (18:34)
[2020-04-04] MEDS ORDERED: *HR* Dextrose 50 % in Water (Syg) 50 ML SYRINGE IVP PRN (18:34)
[2020-04-04] MEDS ORDERED: 0.45 % Sodium Chloride w/KCl 20 MEQ/1,000 ML MLS IVC SCH (18:45)
[2020-04-04] MEDS ORDERED: Ringers Solution, Lactated 1,000 ML IVC ONE (19:07)
[2020-04-04] MEDS ORDERED: Doxycycline 100 MG in 0.9 % Sodium Chloride Mini Bag 100 ML IVPB SCH (19:13)
[2020-04-04] MEDS ORDERED: Azithromycin 500 MG in 0.9 % Sodium Chloride 250 ML IVPB SCH (20:00)
[2020-04-04] MEDS ORDERED: Insulin Human Regular 100 UNIT in 0.9 % Sodium Chloride 100 ML IVC SCH (20:30)
[2020-04-04] MEDS: cefTRIAXone 2,000 MG in Water for inj. (sterile) 20 ML IVP SCH (21:21)
[2020-04-04] MEDS: *HR* Heparin 5,000 UNIT/ML VIAL SQ SCH (21:25)
[2020-04-04 21:35] LABS: Amphetamine Screen,Urine Negative ng/mL (Cutoff=1000); Barbiturate Screen,Urine Negative ng/mL (Cutoff=200); Benzodiazepines Screen,Urine Negative ng/mL (Cutoff=200); Cannabinoid Screen,Urine Negative ng/mL (Cutoff = 50); Cocaine Screen,Urine Negative ng/mL (Cutoff= 300); Opiate Screen,Urine Negative ng/mL (Cutoff=300); Phencyclidine Screen,Urine Negative ng/mL (Cutoff=25)
[2020-04-04] MEDS: D5% in 0.45% NACL w KCl 20 MEQ/1,000 ML MLS IVC PRN (22:25)
[2020-04-04 23:33] LABS: Calcium 8.7 mg/dL (8.6-10.3); Potassium 4.3 mEq/L (3.5-5.1)
[2020-04-05 01:52] LABS: VBG HCO3 22 mEq/L (21-27); VBG PCO2 48 mmHg (41-51); VBG PH 7.27 pH Units (7.32-7.42); VBG PO2 82 mmHg (25-50)
[2020-04-05 01:54] LABS: Basophils % 0.4 %; Eosinophils # 0.3 K/mcL (0.0-0.6); Eosinophils % 2.8 %; Hematocrit 36.7 % (35.3-44.9); Immature Granulocytes % 0.5 % (0-4); Lymphocytes # 1.6 K/mcL (0.6-4.6); Lymphocytes % 16.1 %; Mean Corpuscular HGB Conc 31.3 g/dL (31.6-35.5); Mean Corpuscular Hemoglobin 29.1 pg (28.0-33.3); Mean Corpuscular Volume 92.9 fL (83.0-100.0); Mean Platelet Volume 10.2 fL (9.4-12.4); Monocytes % 9.8 %; Neutrophils # 7.1 K/mcL (1.6-8.9); Platelet Count 393 K/mcL (140-400); Red Blood Count 3.95 M/mcL (3.82-4.97); Red Cell Distribution Width 13.2 % (11.5-14.5); Segmented Neutrophils % 70.4 %; White Blood Count 10.1 K/mcL (4.3-11.1)
[2020-04-05 01:57] LABS: Hemoglobin 11.5 g/dL (11.5-15.4)
[2020-04-05 02:04] LABS: Calcium 8.3 mg/dL (8.6-10.3)
[2020-04-05 02:15] LABS: Albumin 3.4 g/dL (3.5-5.7); Calcium 8.2 mg/dL (8.6-10.3); Phosphorous 3.9 mg/dL (2.7-4.5); Potassium 3.8 mEq/L (3.5-5.1)
[2020-04-05] MEDS: D5% in 0.45% NACL w KCl 20 MEQ/1,000 ML MLS IVC PRN ×2 (03:01→07:15)
[2020-04-05 05:59] LABS: VBG HCO3 19 mEq/L (21-27); VBG PCO2 34 mmHg (41-51); VBG PH 7.36 pH Units (7.32-7.42); VBG PO2 131 mmHg (25-50)
[2020-04-05] MEDS: *HR* Heparin 5,000 UNIT/ML VIAL SQ SCH ×3 (06:30→21:16)
[2020-04-05 06:41] LABS: Calcium 8.3 mg/dL (8.6-10.3); Magnesium 1.7 mg/dL (1.6-2.6); Potassium 4.3 mEq/L (3.5-5.1)
[2020-04-05] MEDS ORDERED: Insulin DETEMIR 100 UNIT/ML X5UNITS SQ ONE (08:36)
[2020-04-05 11:12] LABS: Uric Acid 9.2 mg/dL (2.3-7.6)
[2020-04-05] MEDS ORDERED: D5% in Water 1,000 ML IVC PRN (11:44)
[2020-04-05] MEDS ORDERED: Dextrose Gel 15 GM/37.5 ML TUBE PO PRN ×2 (11:44)
[2020-04-05] MEDS ORDERED: *HR* Dextrose 50 % in Water (Syg) 50 ML SYRINGE IVP PRN (11:44)
[2020-04-05] MEDS ORDERED: Ringers Solution, Lactated 1,000 ML IVC SCH (11:45)
[2020-04-05] MEDS: Insulin LISPRO 300 UNITS/3 ML VIAL SQ SCH ×2 (16:47→21:17)
[2020-04-05] MEDS: cefTRIAXone 2,000 MG in Water for inj. (sterile) 20 ML IVP SCH (21:15)
[2020-04-06 03:02] LABS: Hematocrit 36.1 % (35.3-44.9); Hemoglobin 11.6 g/dL (11.5-15.4); Mean Corpuscular HGB Conc 32.1 g/dL (31.6-35.5); Mean Corpuscular Hemoglobin 29.6 pg (28.0-33.3); Mean Corpuscular Volume 92.1 fL (83.0-100.0); Platelet Count 363 K/mcL (140-400); Red Blood Count 3.92 M/mcL (3.82-4.97); Red Cell Distribution Width 13.2 % (11.5-14.5); White Blood Count 6.9 K/mcL (4.3-11.1)
[2020-04-06 03:22] LABS: Calcium 8.8 mg/dL (8.6-10.3); Potassium 4.7 mEq/L (3.5-5.1)
[2020-04-06] MEDS: *HR* Heparin 5,000 UNIT/ML VIAL SQ SCH ×3 (05:49→20:16)
[2020-04-06] MEDS: Insulin LISPRO 300 UNITS/3 ML VIAL SQ SCH ×4 (08:25→20:41)
[2020-04-06] MEDS: Azithromycin 250 MG TABLET PO SCH (08:25)
[2020-04-06 11:16] LABS: Protein/Creatinine Ratio,Urine 0.79 mg/mg (0.00-0.20); Sodium, Urine 117.4 mEq/L
[2020-04-06] MEDS ORDERED: Thiamine (B-1) 100 MG in 0.9 % Sodium Chloride 50 ML IVPB ONE (12:19)
[2020-04-06] MEDS: cefTRIAXone 2,000 MG in Water for inj. (sterile) 20 ML IVP SCH (20:10)
[2020-04-06] MEDS ORDERED: Insulin DETEMIR 100 UNIT/ML X5UNITS SQ SCH (21:00)
[2020-04-07] MEDS: *HR* Heparin 5,000 UNIT/ML VIAL SQ SCH ×3 (05:40→20:09)
[2020-04-07 09:22] LABS: Hematocrit 38.7 % (35.3-44.9); Hemoglobin 12.7 g/dL (11.5-15.4); Mean Corpuscular HGB Conc 32.8 g/dL (31.6-35.5); Mean Corpuscular Hemoglobin 29.8 pg (28.0-33.3); Mean Corpuscular Volume 90.8 fL (83.0-100.0); Mean Platelet Volume 10.2 fL (9.4-12.4); Platelet Count 375 K/mcL (140-400); Red Blood Count 4.26 M/mcL (3.82-4.97); White Blood Count 6.9 K/mcL (4.3-11.1)
[2020-04-07] MEDS: Azithromycin 250 MG TABLET PO SCH (09:23)
[2020-04-07] MEDS: Thiamine (B-1) 100 MG TABLET PO SCH (09:23)
[2020-04-07] MEDS: Insulin LISPRO 300 UNITS/3 ML VIAL SQ SCH (09:24)
[2020-04-07 09:42] LABS: Calcium 9.6 mg/dL (8.6-10.3); Potassium 4.1 mEq/L (3.5-5.1)
[2020-04-07] MEDS: Insulin NPH/REG 70/30 100 UNIT/ML (x5UNIT) SQ SCH (17:39)
[2020-04-07] MEDS: cefTRIAXone 2,000 MG in Water for inj. (sterile) 20 ML IVP SCH (20:08)
[2020-04-07] MEDS ORDERED: QUEtiapine Fumarate 300 MG TABLET PO SCH (21:00)
[2020-04-08] MEDS: *HR* Heparin 5,000 UNIT/ML VIAL SQ SCH (05:53)
[2020-04-08] MEDS: Azithromycin 250 MG TABLET PO SCH (07:53)
[2020-04-08] MEDS: Insulin NPH/REG 70/30 100 UNIT/ML (x5UNIT) SQ SCH (07:53)
[2020-04-08] MEDS: Thiamine (B-1) 100 MG TABLET PO SCH (07:53)
[2020-04-08 08:09] LABS: Hematocrit 40.4 % (35.3-44.9); Hemoglobin 12.7 g/dL (11.5-15.4); Mean Corpuscular HGB Conc 31.4 g/dL (31.6-35.5); Mean Corpuscular Hemoglobin 28.7 pg (28.0-33.3); Mean Corpuscular Volume 91.4 fL (83.0-100.0); Mean Platelet Volume 10.4 fL (9.4-12.4); Platelet Count 377 K/mcL (140-400); Red Blood Count 4.42 M/mcL (3.82-4.97); Red Cell Distribution Width 12.9 % (11.5-14.5); White Blood Count 6.4 K/mcL (4.3-11.1)
[2020-04-08 08:15] LABS: Calcium 9.5 mg/dL (8.6-10.3); Potassium 4.5 mEq/L (3.5-5.1)
[2020-04-08 10:41] VITALS: BP 131/72
== END 2020-04-08 13:21 | DRG 637 ==
LOC: 2ANU 14:52 → EMEROOARM 14:52 → SUATTDRO 18:20 → 2ANU 18:37 → 3NENU 19:18 → 3BNU 04-05 14:01 → SUATTDRO 04-05 16:16
PROVIDERS: ADMIT Family Medicine; ATTEND Internal Medicine

== ENCOUNTER 2020-05-21 12:55 | Inpatient (IN) ==
[2020-05-21] MEDS ORDERED: 0.9 % Sodium Chloride 1,000 ML IVC ONE (13:14)
[2020-05-21 13:24] LABS: Basophils % 0.3 %; Eosinophils # 0.1 K/mcL (0.0-0.6); Eosinophils % 1.4 %; Immature Granulocytes % 0.4 % (0-4); Lymphocytes # 1.4 K/mcL (0.6-4.6); Lymphocytes % 19.7 %; Mean Corpuscular HGB Conc 30.8 g/dL (31.6-35.5); Mean Corpuscular Hemoglobin 29.2 pg (28.0-33.3); Mean Corpuscular Volume 94.9 fL (83.0-100.0); Mean Platelet Volume 9.4 fL (9.4-12.4); Monocytes # 0.7 K/mcL (0.0-1.3); Neutrophils # 4.8 K/mcL (1.6-8.9); Platelet Count 321 K/mcL (140-400); Red Blood Count 4.11 M/mcL (3.82-4.97); Red Cell Distribution Width 13.9 % (11.5-14.5); Segmented Neutrophils % 68.2 %
[2020-05-21 13:32] LABS: INR 0.8; Prothrombin Time 9.6 Seconds (9.4-12.1)
[2020-05-21 13:35] LABS: Activated Partial Thrombo Time 32.1 Seconds (26.0-36.0)
[2020-05-21 13:44] LABS: Alanine Aminotransferase 6 Units/L (7-52); Albumin 4.1 g/dL (3.5-5.7); Albumin/Globulin Ratio 1.5 (1.1-2.2); Alkaline Phosphatase 87 Units/L (34-104); Aspartate Amino Transferase 10 Units/L (13-39); BUN/Creatinine Ratio 19 (6-26); Bilirubin,Direct 0.1 mg/dL (0.0-0.2); Bilirubin,Indirect 0.3 mg/dL (0.0-1.0); Bilirubin,Total 0.4 mg/dL (0.3-1.0); Blood Urea Nitrogen 25 mg/dL (8-23); Calcium 9.3 mg/dL (8.6-10.3); Carbon Dioxide 25 mEq/L (23-29); Chloride 104 mEq/L (98-107); Creatine Kinase 48 Units/L (30-223); Ethanol < 10 mg/dL (Less than 10); Globulin 2.7 g/dL (2.4-3.5); Glucose 198 mg/dL (70-105); Osmolality,Calculated 292 (280-300); Potassium 4.5 mEq/L (3.5-5.1); Sodium 136 mEq/L (136-145); Total Protein 6.8 g/dL (6.4-8.9); Troponin I < 0.03 ng/mL (< 0.04); eGFR For African Americans 47 (> 60); eGFR For Non-African Americans 39 (> 60)
[2020-05-21 13:45] LABS: Bilirubin,Urine Negative (Negative); Blood,Urine Negative (Negative); Clarity,Urine Clear (Clear); Color,Urine Light-Yellow (Yellow); Glucose,Urine (UA) 70 mg/dL (Normal); Ketones,Urine Negative (Negative); Leukocyte Esterase,Urine Negative (Negative); Nitrite,Urine Negative (Negative); Protein,Urine Negative (Neg-Trace); Specific Gravity,Urine 1.015 (1.010-1.025); Urobilinogen,Urine Normal (Normal)
[2020-05-21 13:56] LABS: Thyroid Stimulating Hormone 0.908 mcIU/mL (0.340-5.600)
[2020-05-21 13:58] LABS: Amphetamine Screen,Urine Negative ng/mL (Cutoff=1000); Barbiturate Screen,Urine Negative ng/mL (Cutoff=200); Benzodiazepines Screen,Urine Negative ng/mL (Cutoff=200); Cannabinoid Screen,Urine Negative ng/mL (Cutoff = 50); Cocaine Screen,Urine Negative ng/mL (Cutoff= 300); Opiate Screen,Urine Negative ng/mL (Cutoff=300); Phencyclidine Screen,Urine Negative ng/mL (Cutoff=25)
[2020-05-21 14:23] LABS: VBG HCO3 24 mEq/L (21-27); VBG PCO2 49 mmHg (41-51); VBG PO2 125 mmHg (25-50)
[2020-05-21] MEDS ORDERED: Aspirin 325 MG TABLET PO ONE (15:33)
[2020-05-21] MEDS ORDERED: Ondansetron 4 MG/2 ML VIAL IVP PRN (15:49)
[2020-05-21] MEDS ORDERED: Mag Hydrox/Al Hydrox/Simeth 30 ML UDC PO PRN (15:49)
[2020-05-21] MEDS ORDERED: *HR* Promethazine 25 MG/ML VIAL IVP PRN (15:49)
[2020-05-21] MEDS ORDERED: Naloxone 0.4 MG/ML INJ IVP PRN (15:49)
[2020-05-21] MEDS ORDERED: Acetaminophen 325 MG TABLET PO PRN (15:49)
[2020-05-21] MEDS ORDERED: MOM Conc 10 ML UD.LIQ PO PRN (15:49)
[2020-05-21] MEDS ORDERED: D5% in Water 1,000 ML IVC PRN (15:50)
[2020-05-21] MEDS ORDERED: *HR* Dextrose 50 % in Water (Vial) 50 ML VIAL IVP PRN (15:50)
[2020-05-21] MEDS ORDERED: Dextrose Gel 15 GM/37.5 ML TUBE PO PRN ×2 (15:50)
[2020-05-21] MEDS: *HR* Heparin 5,000 UNIT/ML VIAL SQ SCH (17:29)
[2020-05-21] MEDS: Insulin LISPRO 300 UNITS/3 ML VIAL SQ SCH ×2 (17:29→21:19)
[2020-05-21] MEDS: Insulin DETEMIR 100 UNIT/ML X5UNITS SQ SCH (21:20)
[2020-05-22] MEDS: *HR* Heparin 5,000 UNIT/ML VIAL SQ SCH ×2 (05:18→18:08)
[2020-05-22 06:52] LABS: Hematocrit 41.6 % (35.3-44.9); Hemoglobin 12.9 g/dL (11.5-15.4); Immature Granulocytes % 0.3 % (0-4); Mean Corpuscular Hemoglobin 29.5 pg (28.0-33.3); Mean Corpuscular Volume 95.2 fL (83.0-100.0); Mean Platelet Volume 10.4 fL (9.4-12.4); Monocytes % 9.4 %; Platelet Count 337 K/mcL (140-400); Red Blood Count 4.37 M/mcL (3.82-4.97); Red Cell Distribution Width 13.6 % (11.5-14.5); Segmented Neutrophils % 59.5 %
[2020-05-22 06:53] LABS: Basophils % 0.4 %; Eosinophils # 0.2 K/mcL (0.0-0.6); Eosinophils % 2.4 %; Monocytes # 0.7 K/mcL (0.0-1.3); Neutrophils # 4.2 K/mcL (1.6-8.9)
[2020-05-22 06:54] LABS: Calcium 9.4 mg/dL (8.6-10.3)
[2020-05-22] MEDS: Insulin LISPRO 300 UNITS/3 ML VIAL SQ SCH ×4 (08:57→20:44)
[2020-05-22] MEDS: Insulin DETEMIR 100 UNIT/ML X5UNITS SQ SCH ×2 (10:29→20:42)
[2020-05-23 01:41] LABS: BUN/Creatinine Ratio 18 (6-26); Blood Urea Nitrogen 19 mg/dL (8-23); Calcium 8.5 mg/dL (8.6-10.3); Carbon Dioxide 24 mEq/L (23-29); Chloride 103 mEq/L (98-107); Glucose 239 mg/dL (70-105); Osmolality,Calculated 290 (280-300); Potassium 4.6 mEq/L (3.5-5.1); Sodium 135 mEq/L (136-145); eGFR For African Americans > 60 (> 60); eGFR For Non-African Americans 52 (> 60)
[2020-05-23] MEDS: *HR* Heparin 5,000 UNIT/ML VIAL SQ SCH ×2 (05:59→17:22)
[2020-05-23] MEDS: Insulin LISPRO 300 UNITS/3 ML VIAL SQ SCH ×3 (08:09→15:33)
[2020-05-23] MEDS: Insulin DETEMIR 100 UNIT/ML X5UNITS SQ SCH (08:10)
[2020-05-23 14:39] VITALS: BP 116/66
== END 2020-05-23 20:15 | disposition home or self-care (01) | DRG 682 ==
LOC: EMEROOARM 12:55 → 3BNU 12:55
PROVIDERS: ADMIT Internal Medicine; ATTEND Internal Medicine